=== PATIENT | female | born 1930 | race Caucasian/White ===

== ENCOUNTER 2017-12-01 12:03 | Inpatient (IN) ==
[2017-12-01 13:03] LABS: Basophils # 0.1 K/mcL (0.0-0.2); Basophils % 0.6 %; Eosinophils # 0.4 K/mcL (0.0-0.6); Eosinophils % 4.1 %; Hematocrit 36.6 % (35.3-44.9); Hemoglobin 11.7 g/dL (11.5-15.4); Immature Granulocytes % 0.4 % (0-4); Lymphocytes # 2.4 K/mcL (0.6-4.6); Lymphocytes % 27.6 %; Mean Corpuscular Hemoglobin 29.6 pg (28.0-33.3); Mean Corpuscular Volume 92.7 fL (83.0-100.0); Mean Platelet Volume 10.5 fL (9.4-12.4); Monocytes # 0.5 K/mcL (0.0-1.3); Neutrophils # 5.2 K/mcL (1.6-8.9); Platelet Count 225 K/mcL (140-400); Red Blood Count 3.95 M/mcL (3.82-4.97); Red Cell Distribution Width 13.8 % (11.5-14.5); Segmented Neutrophils % 61.3 %
--- NOTE | 2017-12-01 13:22 | Emergency Department Note ---
Disposition Clinical Impression: Shortness of breath, Second degree AV block, Mobitz type II Chest pain Qualifiers: Chest pain type: other chest pain Qualified Code(s): R07.89 - Other chest pain Disposition: Admitted As Inpatient Condition: Fair Time of Disposition: 15:36 General Adult HPI - General Chief complaint: ED Shortness of Breath/Dyspnea Stated complaint: sob Time Seen by Provider: 12/01/17 13:19 Source: patient Limitations: no limitations Nursing Notes Reviewed: Yes Vital Signs Reviewed: Yes - History of Present Illness HPI Narrative: Patient is a 87-year-old female that presents the emergency department with left -sided chest pain and exertional shortness of breath. She states that this is been ongoing for the past couple weeks. States that she went to see her primary care provider today who recommended that she come to the emergency department. Patient states that she had a stress test and nuclear echocardiogram approximately one month ago and states that everything was normal. Patient denies any previous history of cardiac arrhythmia. Patient states that her chest pain and shortness of breath becomes worse when she walks. States that she can only walk very short distance with a becoming significantly fatigued and short of breath. Pain Scale: 0 - Related Data Home Medications Medication Instructions Recorded Confirmed Aspirin [Lo-Dose Aspirin EC] 81 mg PO DAILY 12/01/17 12/01/17 Atorvastatin [Lipitor] 40 mg PO DAILY 12/01/17 12/01/17 Bumetanide [Bumex] 1 mg PO DAILY 12/01/17 12/01/17 Cyanocobalamin (Vitamin B-12) 1,000 mcg PO DAILY 12/01/17 12/01/17 [Vitamin B-12] Losartan Potassium [Cozaar] 100 mg PO DAILY 12/01/17 12/01/17 Metoprolol [Lopressor] 25 mg PO BID 12/01/17 12/01/17 Omeprazole [PriLOSEC] 40 mg PO DAILY 12/01/17 12/01/17 Potassium Chloride [Potassium 10 meq PO BID 12/01/17 12/01/17 Chloride] Vit A/Vit C/Vit E/Zinc/Copper 1 each PO DAILY 12/01/17 12/01/17 [Preservision Areds Tablet] Allergies Allergy/AdvReac Type Severity Reaction Status Date / Time No Known Allergies Allergy Verified 12/01/17 13:40 All systems ED: reviewed and negative except as stated. Cardiovascular: Reports: chest pain Respiratory: Reports: dyspnea Endocrine: Reports: fatigue Past Medical History - Past Medical History Medical history: Reports: hyperlipidemia, hypertension, renal disease Surgical history: Reports: hysterectomy Psychiatric history: Reports: no psych history - Social History Smoking Status: Never smoker Smokeless Tobacco Status: No Alcohol use: Reports: none Drug use: Reports: none Physical Exam - General Limitations: no limitations General appearance: alert, in no apparent distress - Head Head exam: atraumatic, normocephalic - Eye Eye exam: Present: normal appearance, EOMI - Neck Neck exam: Present: normal inspection, full ROM, trachea midline - Respiratory Respiratory exam: Present: normal lung sounds bilaterally. Absent: respiratory distress, wheezes - Cardiovascular Cardiovascular exam: Present: normal rhythm, bradycardia, normal heart sounds, + S1, +S2 - Abdominal Exam Abdominal exam: Present: soft, Non-Tender, normal bowel sounds - Neurological Exam Neurological exam: Present: alert, oriented X3 - Psychiatric Psychiatric exam: Present: normal affect, normal mood - Skin Skin exam: Present: warm, dry, intact Course Vital Signs Temperature 97.9 F 12/01/17 12:15 Pulse Rate 45 12/01/17 12:15 Respiratory Rate 18 12/01/17 12:15 Blood Pressure 143/71 12/01/17 12:15 O2 Sat by Pulse Oximetry 95 12/01/17 12:15 Temperature 97.9 F 12/01/17 12:15 Pulse Rate 45 12/01/17 12:15 Respiratory Rate 18 12/01/17 12:15 Blood Pressure 143/71 12/01/17 12:15 O2 Sat by Pulse Oximetry 95 12/01/17 12:15 Oxygen Delivery Oxygen Delivery Room Air Medical Decision Making - [facility] Narrative Medical decision making narrative: Due to the patient presenting with chest pain and shortness of breath we will obtain CBC, BMP, troponin, chest x-ray EKG, TSH and magnesium. The patient's EKG did show a second-degree type II heart block. We will also give the patient a dose of glucagon in case this is due to excessive beta johanna. We will also treat the patient prophylactically with Zofran. Patient's laboratory testing is unremarkable. I called and spoke with cardiology and they recommended the patient be admitted to the hospitalist service and they will consult on this patient. I called and spoke with the hospitalist and they accepted the patient to their service. The patient will be admitted to the hospital this time for further evaluation and management. - Medical Records Medical records reviewed: Yes I reviewed the patient's medical records. - Lab Data Lab results reviewed: Yes I reviewed the patient's lab results. Result diagrams: 12/01/17 12:47 12/01/17 12:23 Lab Results 12/01/17 12/01/17 12/01/17 Range/Units 12:23 12:47 12:47 WBC 8.5 (4.3-11.1) K/mcL RBC 3.95 (3.82-4.97) M/mcL Hgb 11.7 (11.5-15.4) g/dL Hct 36.6 (35.3-44.9) % MCV 92.7 (83.0-100.0) fL MCH 29.6 (28.0-33.3) pg MCHC 32.0 (31.6-35.5) g/dL RDW 13.8 (11.5-14.5) % Plt Count 225 (140-400) K/mcL MPV 10.5 (9.4-12.4) fL Immature Gran % 0.4 (0-4) % Seg Neutrophils % 61.3 % Lymphocytes % 27.6 % Monocytes % 6.0 % Eosinophils % 4.1 % Basophils % 0.6 % Neutrophils # 5.2 (1.6-8.9) K/mcL Lymphocytes # 2.4 (0.6-4.6) K/mcL Monocytes # 0.5 (0.0-1.3) K/mcL Eosinophils # 0.4 (0.0-0.6) K/mcL Basophils # 0.1 (0.0-0.2) K/mcL Sodium 137 (136-145) mEq/L Potassium 4.3 (3.5-5.1) mEq/L Chloride 108 H (98-107) mEq/L Carbon Dioxide 23 (23-29) mEq/L BUN 30 H (8-23) mg/dL Creatinine 1.23 H (0.60-1.20) mg/dL Est GFR ( Amer) 50 L (> 60) Est GFR (Non-Af Amer) 41 L (> 60) BUN/Creatinine Ratio 24 (6-26) Glucose 148 H (70-105) mg/dL Calculated Osmolality 293 (280-300) Lactic Acid 1.5 (0.5-2.2) mmol/L Calcium 9.3 (8.6-10.3) mg/dL Magnesium 1.8 (1.6-2.6) mg/dL Troponin I 0.03 (< 0.04) ng/mL B-Natriuretic Peptide (Less than 100) pg/mL TSH 3.233 (0.340-5.600) mcIU/mL 12/01/17 Range/Units 12:47 WBC (4.3-11.1) K/mcL RBC (3.82-4.97) M/mcL Hgb (11.5-15.4) g/dL Hct (35.3-44.9) % MCV (83.0-100.0) fL MCH (28.0-33.3) pg MCHC (31.6-35.5) g/dL RDW (11.5-14.5) % Plt Count (140-400) K/mcL MPV (9.4-12.4) fL Immature Gran % (0-4) % Seg Neutrophils % % Lymphocytes % % Monocytes % % Eosinophils % % Basophils % % Neutrophils # (1.6-8.9) K/mcL Lymphocytes # (0.6-4.6) K/mcL Monocytes # (0.0-1.3) K/mcL Eosinophils # (0.0-0.6) K/mcL Basophils # (0.0-0.2) K/mcL Sodium (136-145) mEq/L Potassium (3.5-5.1) mEq/L Chloride (98-107) mEq/L Carbon Dioxide (23-29) mEq/L BUN (8-23) mg/dL Creatinine (0.60-1.20) mg/dL Est GFR ( Amer) (> 60) Est GFR (Non-Af Amer) (> 60) BUN/Creatinine Ratio (6-26) Glucose (70-105) mg/dL Calculated Osmolality (280-300) Lactic Acid (0.5-2.2) mmol/L Calcium (8.6-10.3) mg/dL Magnesium (1.6-2.6) mg/dL Troponin I (< 0.04) ng/mL B-Natriuretic Peptide 1174 H (Less than 100) pg/mL TSH (0.340-5.600) mcIU/mL - Radiology Data Radiology results reviewed: Yes I reviewed the patient's radiology results. Chest X-Ray 12/01/17 12:23 IMPRESSION: 1. Minimal central congestion. No evidence of pulmonary edema. No finding to account for patient's shortness of breath. D/ / Neil Ramires MD / Neil Ramires MD Interpreting Provider: Neil Ramires MD - EKG Data EKG #1 EKG attestation: Yes I reviewed and interpreted this EKG. EKG results narrative: Patient's EKG shows a sinus bradycardia with a second-degree type II AV block. At a rate of 38 bpm, QRS duration of 126, QTc of 396 with a normal axis. This was compared to previous EKG on 03/14/2007. Showed a sinus rhythm at a rate of 85 bpm.
[2017-12-01] MEDS ORDERED: Ondansetron 4 MG/2 ML VIAL IVP ONE ×2 (13:28→15:35)
[2017-12-01 13:34] LABS: Calcium 9.3 mg/dL (8.6-10.3); Potassium 4.3 mEq/L (3.5-5.1)
[2017-12-01 13:36] LABS: Troponin I 0.03 ng/mL (< 0.04)
[2017-12-01 13:59] LABS: Thyroid Stimulating Hormone 3.233 mcIU/mL (0.340-5.600)
--- NOTE | 2017-12-01 14:23 | Cardiology Consult Note ---
<Hussain Giordano - Last Filed: 12/01/17 15:24> Date of Encounter: 12/01/17 Time of Encounter: 14:21 Assessment and Plan (1) Second degree AV block, Mobitz type II Current Visit: Yes Status: Acute Nuclear Stress Test: 10/13/17 Pharmacologic stress ECG is non diagnostic for ischemia due to baseline non-specific ST and T changes. Gated EF > 70%. Small sized, mild intensity, primarily fixed anterior defect. Wall motion is normal. These findings are suggestive of artifact. Perfusion imaging was negative for ischemia or infarct. Myocardial Perfusion Scan Nuc Med: Pharmacologic stress ECG is non diagnostic for ischemia due to baseline 10/13/[address] non-[address] and T changes. Gated EF > 70%. Small sized, mild intensity, primarily fixed anterior defect. Wall motion is normal. These findings are suggestive of artifact. Perfusion imaging was negative for ischemia or infarct. Echocardiogram: 10/13/17 Impressions: LVEF 60-65%. Normal LV chamber size and function. Asymmetric hypertrophy of the basal septum. No LVOT obstruction. Mild left ventricular diastolic dysfunction. Normal right ventricular structure and function. Evidence of a PFO with right to left shunt with agitated saline. Mild aortic stenosis. Mean gradient 12 mmHg. Mild mitral regurgitation. No evidence of pulmonary hypertension. EKG shows Mobitz Type II at rate of 38 bpm, new when compared to old EKG. Troponin negative. BNP 1200's. CXR mild central vascular congestion. Creatinine elevated at 1.23. Patient given total of 4mg of glucagon for reversal of BB with no response. Patient current rythm may be related to her BB medication. Plan: Stop Lopressor 25mg BID Continue to monitor on telemetry If Mobitz II does not resolve, may consider permanent pacemaker Will reevaluate tomorrow (2) Shortness of breath Current Visit: Yes Status: Acute May be due to patient bradycardia from heart block at this time (3) Chest pain Current Visit: Yes Status: Acute See notes above Qualifiers: Chest pain type: other chest pain Qualified Code(s): R07.89 - Other chest pain; R07.8 - Other chest pain Discussion w patient/family: The assessment and plan as outlined above was discussed with the patient and/or family members who expressed understanding and agreement. All questions were answered. Thank you for involving us in the care of your patient. Please call with any questions. History of Present Illness Consult date: 12/01/17 Requesting physician: Guillermo Lechuga Consult reason: Mobitz Type II Chief complaint: CHRISTOPHER History of present illness: Ms. Robles is a 87 year old female with a past medical history of hyperlipidemia , hypertension, CK D stage III, and hysterectomy presenting to the emergency department for complaint of shortness of breath and chest pain that has been going on for 2 months. The patient states that over the past week her shortness of breath has worsened rapidly. Patient states that she has difficulty with walking from the couch to the bathroom or doing any sort of activity and sometimes with conversating. The patient was initially being seen by her primary care provider, Dr. Cuadra, and she is being evaluated for her shortness of breath which she underwent a nuclear stress test as well as an echocardiogram which she was told was normal. At this time the patient states that she does have chest pain and it is described as left-sided with radiation to the back. The chest pain is pressure-like and a 3/10 on pain scale and at times associated with diaphoresis. She states that the chest pain is intermittent and sometimes it comes on when she was sitting down does not notice a pattern with exertion. Patient states she has had a heart catheterization done over 10 years ago in which they stated she had minimal blockages and no stents or balloons were placed at that time. Today while in the emergency department she has an elevated BNP at 1174, elevated creatinine 1.23. She does take a beta johanna, Lopressor 25 mg twice a day, she states has not been any changes in her medications over the past few years. She was given glucagon. Her EKG shows a type II Mobitz block at a rate of 38 bpm. Her blood pressure is elevated at 180/60. Past Med Surg Social Fam HX - Past Medical History Medical history: hyperlipidemia, hypertension, renal disease Psychiatric history: no psych history - Past Surgical History Surgical History: hysterectomy - Social History Smoking Status: Never smoker Smokeless Tobacco Status: No Alcohol use: none Drug use: none Medications and Allergies Aspirin [Lo-Dose Aspirin EC] 81 mg PO DAILY 12/01/17 [History] Atorvastatin [Lipitor] 40 mg PO DAILY 12/01/17 [History] Bumetanide [Bumex] 1 mg PO DAILY 12/01/17 [History] Cyanocobalamin (Vitamin B-12) [Vitamin B-12] 1,000 mcg PO DAILY 12/01/17 [ History] Losartan Potassium [Cozaar] 100 mg PO DAILY 12/01/17 [History] Metoprolol [Lopressor] 25 mg PO BID 12/01/17 [History] Omeprazole [PriLOSEC] 40 mg PO DAILY 12/01/17 [History] Potassium Chloride [Potassium Chloride] 10 meq PO BID 12/01/17 [History] Vit A/Vit C/Vit E/Zinc/Copper [Preservision Areds Tablet] 1 each PO DAILY [History] 3 Allergy/AdvReac Type Severity Reaction Status Date / Time No Known Allergies Allergy Verified 12/01/17 13:40 All Systems Review: The remainder of the systems were reviewed and are negative - Constitutional Constitutional: weakness - Cardiovascular Cardiovascular: chest pain at rest, diaphoresis, dyspnea at rest, dyspnea on exertion, leg edema, no palpitations - Respiratory Respiratory: dyspnea - Gastrointestinal Gastrointestinal: no nausea Physical Examination Vital Signs, Last 4 Hours Temp Pulse Resp BP Pulse Ox 12/01/17 12:15 97.9 F 45 18 143/71 95 General: Conversant, No Apparent Distress HEENT: Atraumatic, Normocephaly, Mucus Membranes Moist Neck: No JVD, Normal carotid pulses Cardiac: Normal S1 and S2, No Murmur, Other (bradycardia) Lungs: Other (mild expiratory wheeze) Neuro: Alert and responsive, No focal deficits noted Abdomen: Soft, Non-Tender Skin: No rashes noted on visualized skin Musculoskeletal: No Chest Wall Tenderness Extremities: No Clubbing, No Cyanosis, Normal Pulses, Other (1+ pitting edema bilaterally) Results 12/01/17 12:47 12/01/17 12:23 Lab Results 12/01/17 12/01/17 12/01/17 12:23 12:47 12:47 WBC 8.5 Hgb 11.7 Hct 36.6 Plt Count 225 Sodium 137 Potassium 4.3 Chloride 108 H Carbon Dioxide 23 BUN 30 H Creatinine 1.23 H Glucose 148 H Calcium 9.3 Troponin I 0.03 B-Natriuretic Peptide 1174 H TSH 3.233 Consult Discharge Plan - Plan Referrals: Lee Cuadra MD [Primary Care Provider] - <Marck Sauceda - Last Filed: 12/03/17 22:36> Date of Encounter: 12/01/17 - Attending Attestation I examined this patient and my medical decision-making was reviewed with the Resident Physician. I agree with the documented findings, disposition and treatment plan as described except to the extent set forth below. CC: fatigue, shortness of breath Pt reports two month history of increasing fatigue, worse with activity, having increased difficulty with self care and housework because she feels too tired. She is unable to perform usual acitivity without having to sit down and rest much more frequently. She also reports episodic shortness of breath, not present all the time, but occurs four to five times a day where she feels air hunger, as if she cannot take a full breath, which lasts seconds to minutes. These events usually occur with activity, resolve with rest. She has undergone outpatient evaluation with stress imaging, reportedly no inducible ischemia, and echocardiogram which was significant for small PFO with small right to left shunt, normal LV systolic function and mild MR. She reports she feels tired and sleepy at rest at time of evaluation. PMHx: reviewed PE: pt seen and examined, agree with findings as documented IMP:PLAN 1. Bradycardia: Ekg demonstrates Mobitz II 2:1 AV block with ventricular heart rate of 38 - 42, with preserved bp 145/72. Suspect her "episodes" may be due to bradycardia, at this time Does not need temporary pacer, hold beta blockade, check TSH, continue to monitor, will follow with you off metoprolol, suspect will recover from block, may still need permenent pacemaker. 2. Hypertension: not well controlled, will monitor off beta blockade 3. PFO - small, not clearly symptomatic, continue to monitor Assessment and Plan Discussion w patient/family: The assessment and plan as outlined above was discussed with the patient and/or family members who expressed understanding and agreement. All questions were answered. Thank you for involving us in the care of your patient. Please call with any questions. History of Present Illness History of present illness: Ms. Robles is a 87 year old female Past Med Surg Social Fam HX - Family History Mother Living Status: Hx Family Cardiac Disorders: Yes Father Living Status: Hx Family Cardiac Disorders: Yes Brother Hx Family Cardiac Disorders: Yes All Systems Review: The remainder of the systems were reviewed and are negative Physical Examination Vital Signs, Last 4 Hours Temp Pulse Resp BP Pulse Ox 12/03/17 19:21 98.2 F 81 18 190/84 94 Results 12/03/17 08:40 12/03/17 08:40 Lab Results 12/03/17 12/03/17 08:40 08:40 WBC 6.1 Hgb 10.9 L Hct 32.9 L Plt Count 188 Sodium 140 Potassium 4.2 Chloride 107 Carbon Dioxide 26 BUN 31 H Creatinine 1.30 H Glucose 137 H Calcium 9.0
[2017-12-01 14:42] LABS: Magnesium 1.8 mg/dL (1.6-2.6)
[2017-12-01] MEDS ORDERED: Naloxone 0.4 MG/ML INJ IVP PRN (16:32)
[2017-12-01] MEDS ORDERED: 0.9 % Sodium Chloride 1,000 ML IVC SCH (16:45)
--- NOTE | 2017-12-01 16:59 | Internal Med History&Physical ---
Date of Encounter: 12/01/17 Time of Encounter: 16:40 Internal Medicine - H&P: HPI Chief complaint: Chest pain and Dizziness. Admitted From: Emergency Dept Plans for Post Hospital Care: Home History of present illness: Ms. Robles is a 87 year old female has a background history of hypertension and hyperlipidemia along with chronic kidney disease stage III. Patient was evaluated by her primary care and recommended to go to emergency department because patient has a chest pain/shortness of breath along with a left-sided weakness. It was told by primary care provider to patient that she might need a CT scan of the brain. Patient denies abdominal pain, nausea, vomiting, diarrhea. Workup in the emergency department: Patient was evaluated in the emergency department. Basic labs were drawn. EKG shows type II Mobitz block. Noted that cardiology was consulted. Reason for admission: Chest pain likely secondary to rhythm abnormality, possibility of a TIA to rule out CVA Past Med Surg Social Fam HX - Past Medical History Medical history: hyperlipidemia, hypertension, renal disease Psychiatric history: no psych history - Past Surgical History Surgical History: hysterectomy - Social History Smoking Status: Never smoker Smokeless Tobacco Status: No Alcohol use: none Drug use: none - Family History Mother Living Status: Hx Family Cardiac Disorders: Yes Father Living Status: Hx Family Cardiac Disorders: Yes Brother Hx Family Cardiac Disorders: Yes Internal Medicine - H&P: Meds Aspirin [Lo-Dose Aspirin EC] 81 mg PO DAILY 12/01/17 [History] Atorvastatin [Lipitor] 40 mg PO DAILY 12/01/17 [History] Bumetanide [Bumex] 1 mg PO DAILY 12/01/17 [History] Cyanocobalamin (Vitamin B-12) [Vitamin B-12] 1,000 mcg PO DAILY 12/01/17 [ History] Losartan Potassium [Cozaar] 100 mg PO DAILY 12/01/17 [History] Metoprolol [Lopressor] 25 mg PO BID 12/01/17 [History] Omeprazole [PriLOSEC] 40 mg PO DAILY 12/01/17 [History] Potassium Chloride [Potassium Chloride] 10 meq PO BID 12/01/17 [History] Vit A/Vit C/Vit E/Zinc/Copper [Preservision Areds Tablet] 1 each PO DAILY [History] 3 Allergy/AdvReac Type Severity Reaction Status Date / Time No Known Allergies Allergy Verified 12/01/17 13:40 All Systems PM: A 10-system review of systems was performed and is negative for pertinent findings except as documented above in the HPI. - Constitutional Constitutional: no chills, no fever(s), no night sweats - EENT Eyes: no change in vision, no discharge, no pain, no photophobia Ears: no ear discharge, no ear pain, no tinnitus Nose, mouth and throat: no dysphagia, no nasal discharge, no neck pain, no sore throat - Cardiovascular Cardiovascular ROS IM: chest pain, dyspnea, lightheadedness, no diaphoresis, no palpitations, no syncope - Respiratory Respiratory: no cough, no dyspnea, no wheezing, no excessive phlegm production - Gastrointestinal Gastrointestinal: no abdominal pain, no diarrhea, no hematemesis, no hematochezia, no melena, no nausea, no vomiting - Genitourinary Genitourinary: no change in urinary stream, no dysuria, no flank pain, no hematuria - Musculoskeletal Musculoskeletal ROS IM: no numbness, no tingling - Integumentary Integumentary IM: no rash, no unusual bruising - Neurological Neurological ROS: no confusion, no convulsions, no focal weakness, no numbness, no tingling, no tremor(s) - Hematologic/Lymphatic Hematologic/Lymphatic: no easy bruising - Constitutional Vitals: Temp Pulse Resp BP Pulse Ox 97.9 F 45 18 143/71 95 12/01/17 12:15 12/01/17 12:15 12/01/17 12:15 12/01/17 12:15 12/01/17 12:15 General appearance: Present: A&O X 3, pleasant, no acute distress, answers questions appropriately - Head Head exam: Present: atraumatic, normocephalic - Eye Eye exam: Present: PERRL, conjuntiva pink, sclera anicteric Pupils: Present: PERRL - Neck Neck exam general surgery: Present: supple, trachea midline. Absent: lymphadenopathy - Respiratory Respiratory exam: Present: CTAB. Absent: accessory muscle use, rales, rhonchi, wheezes - Cardiovascular Cardiovascular exam: Present: RRR, +S1, +S2. Absent: diastolic murmur, gallop, rubs, systolic murmur - GI/Abdominal GI/Abdominal exam: Present: normal bowel sounds, soft, no peritoneal signs. Absent: distended, tenderness - Extremities Exam Extremities exam: Present: warm, radial pulses palpable and symmetrical. Absent : calf tenderness, cyanotic, pedal edema - Neurological Exam Neurological exam: Present: CN II-XII intact, oriented X3, no focal deficits. Absent: pronater drift, facial droop, speech deficit - Skin Skin exam: Present: dry, intact Internal Med - H&P Results - Labs CBC & Chem 7: 12/01/17 12:47 12/01/17 12:23 - Assessment and plan (1) Chest pain Current Visit: Yes Status: Acute Assessment and plan: 87/female Admitted with chest pain. We will get 3 troponin. echocardiogram. Patient 3 troponin normal and echocardiogram is within normal limit then please consider stress test. Qualifiers: Chest pain type: other chest pain Qualified Code(s): R07.89 - Other chest pain; R07.8 - Other chest pain (2) Second degree AV block, Mobitz type II Current Visit: Yes Status: Acute Assessment and plan: Cardiology on the board and we will follow recommendations (3) Shortness of breath Current Visit: Yes Status: Acute Assessment and plan: Much improved (4) DVT prophylaxis Current Visit: Yes Status: Acute - Time Spent With Patient Total time spent is greater than 50% in coordination of care (as documented) at patient's floor/unit and/or counseling patient:
--- NOTE | 2017-12-01 22:46 | Emergency Department Note ---
Disposition Clinical Impression: Shortness of breath, Second degree AV block, Mobitz type II Chest pain Qualifiers: Chest pain type: other chest pain Qualified Code(s): R07.89 - Other chest pain Disposition: Admitted As Inpatient Condition: Fair General Adult HPI - General Chief complaint: ED Shortness of Breath/Dyspnea Stated complaint: sob Time Seen by Provider: 12/01/17 13:19 Source: patient Limitations: no limitations - History of Present Illness Pain Scale: 0 - Related Data Home Medications Medication Instructions Recorded Confirmed Aspirin [Lo-Dose Aspirin EC] 81 mg PO DAILY 12/01/17 12/01/17 Atorvastatin [Lipitor] 40 mg PO DAILY 12/01/17 12/01/17 Bumetanide [Bumex] 1 mg PO DAILY 12/01/17 12/01/17 Cyanocobalamin (Vitamin B-12) 1,000 mcg PO DAILY 12/01/17 12/01/17 [Vitamin B-12] Losartan Potassium [Cozaar] 100 mg PO DAILY 12/01/17 12/01/17 Metoprolol [Lopressor] 25 mg PO BID 12/01/17 12/01/17 Omeprazole [PriLOSEC] 40 mg PO DAILY 12/01/17 12/01/17 Potassium Chloride [Potassium 10 meq PO BID 12/01/17 12/01/17 Chloride] Vit A/Vit C/Vit E/Zinc/Copper 1 each PO DAILY 12/01/17 12/01/17 [Preservision Areds Tablet] Allergies Allergy/AdvReac Type Severity Reaction Status Date / Time No Known Allergies Allergy Verified 12/01/17 13:40 Cardiovascular: Reports: chest pain Respiratory: Reports: dyspnea Endocrine: Reports: fatigue Past Medical History - Past Medical History Medical history: Reports: hyperlipidemia, hypertension, renal disease Surgical history: Reports: hysterectomy Psychiatric history: Reports: no psych history - Social History Smoking Status: Never smoker Smokeless Tobacco Status: No Alcohol use: Reports: none Drug use: Reports: none Physical Exam - General Limitations: no limitations General appearance: alert, in no apparent distress Course Vital Signs Temperature 97.9 F 12/01/17 12:15 Pulse Rate 45 12/01/17 12:15 Respiratory Rate 18 12/01/17 12:15 Blood Pressure 143/71 12/01/17 12:15 O2 Sat by Pulse Oximetry 95 12/01/17 12:15 Temperature 97.9 F 12/01/17 19:08 Pulse Rate 44 12/01/17 17:25 Respiratory Rate 16 12/01/17 19:08 Blood Pressure 142/61 12/01/17 19:08 O2 Sat by Pulse Oximetry 96 12/01/17 21:02 Oxygen Delivery Oxygen Delivery Room Air Medical Decision Making - Lab Data Result diagrams: 12/01/17 12:47 12/01/17 12:23 Lab Results 12/01/17 12/01/17 12/01/17 Range/Units 12:23 12:47 12:47 WBC 8.5 (4.3-11.1) K/mcL RBC 3.95 (3.82-4.97) M/mcL Hgb 11.7 (11.5-15.4) g/dL Hct 36.6 (35.3-44.9) % MCV 92.7 (83.0-100.0) fL MCH 29.6 (28.0-33.3) pg MCHC 32.0 (31.6-35.5) g/dL RDW 13.8 (11.5-14.5) % Plt Count 225 (140-400) K/mcL MPV 10.5 (9.4-12.4) fL Immature Gran % 0.4 (0-4) % Seg Neutrophils % 61.3 % Lymphocytes % 27.6 % Monocytes % 6.0 % Eosinophils % 4.1 % Basophils % 0.6 % Neutrophils # 5.2 (1.6-8.9) K/mcL Lymphocytes # 2.4 (0.6-4.6) K/mcL Monocytes # 0.5 (0.0-1.3) K/mcL Eosinophils # 0.4 (0.0-0.6) K/mcL Basophils # 0.1 (0.0-0.2) K/mcL Sodium 137 (136-145) mEq/L Potassium 4.3 (3.5-5.1) mEq/L Chloride 108 H (98-107) mEq/L Carbon Dioxide 23 (23-29) mEq/L BUN 30 H (8-23) mg/dL Creatinine 1.23 H (0.60-1.20) mg/dL Est GFR ( Amer) 50 L (> 60) Est GFR (Non-Af Amer) 41 L (> 60) BUN/Creatinine Ratio 24 (6-26) Glucose 148 H (70-105) mg/dL Calculated Osmolality 293 (280-300) Lactic Acid 1.5 (0.5-2.2) mmol/L Calcium 9.3 (8.6-10.3) mg/dL Magnesium 1.8 (1.6-2.6) mg/dL Troponin I 0.03 (< 0.04) ng/mL B-Natriuretic Peptide (Less than 100) pg/mL TSH 3.233 (0.340-5.600) mcIU/mL 12/01/17 12/01/17 Range/Units 12:47 16:55 WBC (4.3-11.1) K/mcL RBC (3.82-4.97) M/mcL Hgb (11.5-15.4) g/dL Hct (35.3-44.9) % MCV (83.0-100.0) fL MCH (28.0-33.3) pg MCHC (31.6-35.5) g/dL RDW (11.5-14.5) % Plt Count (140-400) K/mcL MPV (9.4-12.4) fL Immature Gran % (0-4) % Seg Neutrophils % % Lymphocytes % % Monocytes % % Eosinophils % % Basophils % % Neutrophils # (1.6-8.9) K/mcL Lymphocytes # (0.6-4.6) K/mcL Monocytes # (0.0-1.3) K/mcL Eosinophils # (0.0-0.6) K/mcL Basophils # (0.0-0.2) K/mcL Sodium (136-145) mEq/L Potassium (3.5-5.1) mEq/L Chloride (98-107) mEq/L Carbon Dioxide (23-29) mEq/L BUN (8-23) mg/dL Creatinine (0.60-1.20) mg/dL Est GFR ( Amer) (> 60) Est GFR (Non-Af Amer) (> 60) BUN/Creatinine Ratio (6-26) Glucose (70-105) mg/dL Calculated Osmolality (280-300) Lactic Acid (0.5-2.2) mmol/L Calcium (8.6-10.3) mg/dL Magnesium (1.6-2.6) mg/dL Troponin I 0.05 H* (< 0.04) ng/mL B-Natriuretic Peptide 1174 H (Less than 100) pg/mL TSH (0.340-5.600) mcIU/mL Attestation Statement - Attestation Attestation: I examined this patient and my medical decision-making was reviewed with the Resident Physician. I agree with the documented findings, disposition and treatment plan as described except to the extent set forth below. Moments type II second-degree AV block with heart rate of 38-41. Spoke with cardiology, who requested admission to medicine. Blood pressure is normal. Alleged lites normal. No response to glucagon. Admitted to medicine with consult to cardiology, blood pressure remained normal while in the emergency department.
[2017-12-01] MEDS ORDERED: Furosemide 20 MG/2 ML VIAL IVP ONE (23:37)
[2017-12-02] MEDS: *HR* Heparin 5,000 UNIT/ML VIAL SQ SCH ×3 (00:14→17:00)
[2017-12-02] MEDS: Acetaminophen 325 MG TABLET PO PRN (04:38)
[2017-12-02 05:00] LABS: Basophils % 0.5 %; Eosinophils # 0.3 K/mcL (0.0-0.6); Eosinophils % 3.9 %; Hematocrit 32.5 % (35.3-44.9); Hemoglobin 10.4 g/dL (11.5-15.4); Immature Granulocytes % 0.4 % (0-4); Lymphocytes # 2.2 K/mcL (0.6-4.6); Lymphocytes % 29.5 %; Mean Corpuscular Hemoglobin 29.7 pg (28.0-33.3); Mean Corpuscular Volume 92.9 fL (83.0-100.0); Mean Platelet Volume 10.8 fL (9.4-12.4); Monocytes # 0.6 K/mcL (0.0-1.3); Monocytes % 7.6 %; Neutrophils # 4.3 K/mcL (1.6-8.9); Platelet Count 194 K/mcL (140-400); Red Cell Distribution Width 14.2 % (11.5-14.5); Segmented Neutrophils % 58.1 %
[2017-12-02 05:07] LABS: Prothrombin Time 11.2 Seconds (9.4-12.1)
[2017-12-02 05:10] LABS: Activated Partial Thrombo Time 30.2 Seconds (26.0-36.0)
[2017-12-02 05:20] LABS: Albumin 3.4 g/dL (3.5-5.7); Albumin/Globulin Ratio 1.4 (1.1-2.2); Bilirubin,Total 0.7 mg/dL (0.3-1.0); Calcium 8.9 mg/dL (8.6-10.3); Chol/HDL Ratio 3.8 (0-4.9); Globulin 2.5 g/dL (2.4-3.5); Magnesium 1.7 mg/dL (1.6-2.6); Phosphorous 4.4 mg/dL (2.7-4.5); Potassium 4.5 mEq/L (3.5-5.1); Total Protein 5.9 g/dL (6.4-8.9)
--- NOTE | 2017-12-02 07:17 | Electrocardiograph Report ---
[place] [facility] Test Date: 2017-12-01 Pat Name: Rosalba Robles Department: [id number] Room: 2N06 Gender: F Transportation Attendant: : [id number] Requested By: Hiro Slaughter Order Number: [id number] Reading MD: Rose Mary Anthony Measurements Intervals [place] Rate: 38 P: RI: 0 QRS: 27 QRSD: 126 T: 16 QT: 473 QTc: 396 Interpretive Statements SINUS BRADYCARDIA WITH 2ND DEGREE AV BLOCK, MOBITZ TYPE II RIGHT BUNDLE BRANCH BLOCK Electronically Signed On 12-02-2017 7:16:07 EDT by Rose Mary Anthony
[2017-12-02] MEDS: Bumetanide 1 MG TABLET PO SCH (09:02)
[2017-12-02] MEDS: Multivit/Ca/Min/Fe/FA 1 TAB TABLET PO SCH (09:02)
[2017-12-02] MEDS: Aspirin Enteric Coated 81 MG Tablet PO SCH (09:02)
--- NOTE | 2017-12-02 19:21 | Internal Med Progress Note ---
Date of Encounter: 12/02/17 Time of Encounter: 11:00 - Assessment and plan (1) Second degree AV block, Mobitz type II Current Visit: Yes Status: Acute Assessment and plan: Patient with symptomatic bradycardia with heart rate in the 40s since admission Cardiology following and appreciate recommendations (2) HTN (hypertension) Current Visit: Yes Status: Acute Assessment and plan: Controlled; continue Cozaar Qualifiers: Hypertension type: essential hypertension Qualified Code(s): I10 - Essential (primary) hypertension (3) HLD (hyperlipidemia) Current Visit: Yes Status: Acute Assessment and plan: Continue statin Qualifiers: Hyperlipidemia type: unspecified Qualified Code(s): E78.5 - Hyperlipidemia , unspecified (4) DVT prophylaxis Current Visit: Yes Status: Acute Assessment and plan: Continue subcutaneous heparin - Time Spent With Patient Total time spent is greater than 50% in coordination of care (as documented) at patient's floor/unit and/or counseling patient: - Subjective Interval history: Patient has had symptomatic bradycardia since admission with heart rate in the 40s - Constitutional Vitals: Temp Pulse Resp BP Pulse Ox 97.8 F 45 18 153/59 99 12/02/17 16:44 12/02/17 16:44 12/02/17 16:44 12/02/17 16:44 12/02/17 16:44 General appearance: Present: A&O X 3, pleasant, no acute distress, answers questions appropriately - Respiratory Respiratory exam: Present: CTAB. Absent: accessory muscle use, rales, rhonchi, wheezes - Cardiovascular Cardiovascular exam: Present: RRR, +S1, +S2. Absent: diastolic murmur, gallop, rubs, systolic murmur Internal Medicine: Result - Labs CBC & Chem 7: 12/02/17 04:47 12/02/17 04:47 Labs: Short CBC 12/02/17 Range/Units 04:47 WBC 7.4 (4.3-11.1) K/mcL Hgb 10.4 L (11.5-15.4) g/dL Hct 32.5 L (35.3-44.9) % Plt Count 194 (140-400) K/mcL Neutrophils # 4.3 (1.6-8.9) K/mcL BMP 12/02/17 04:47 Sodium 142 Potassium 4.5 Chloride 111 H Carbon Dioxide 24 BUN 31 H Creatinine 1.36 H Glucose 141 H Calcium 8.9 Cardiac Enzymes 12/01/17 12/02/17 12/02/17 Range/Units 22:21 04:47 11:43 Troponin I 0.04 H* 0.06 H* 0.05 H* (< 0.04) ng/mL Liver Function 12/02/17 Range/Units 04:47 Total Bilirubin 0.7 (0.3-1.0) mg/dL AST 18 (13-39) Units/L ALT 23 (7-52) Units/L Alkaline Phosphatase 65 (34-104) Units/L Albumin 3.4 L (3.5-5.7) g/dL - ABG Interpretation ABG results: PT/INR, D-dimer PT 11.2 Seconds (9.4-12.1) 12/02/17 04:47 Consult Discharge Plan - Plan Referrals: Lee Cuadra MD [Primary Care Provider] -
[2017-12-03] MEDS: *HR* Heparin 5,000 UNIT/ML VIAL SQ SCH ×4 (01:00→22:50)
[2017-12-03] MEDS: Bumetanide 1 MG TABLET PO SCH (07:52)
[2017-12-03] MEDS: Multivit/Ca/Min/Fe/FA 1 TAB TABLET PO SCH (07:52)
[2017-12-03] MEDS: Aspirin Enteric Coated 81 MG Tablet PO SCH (07:52)
[2017-12-03 08:50] LABS: Basophils % 0.7 %; Eosinophils # 0.3 K/mcL (0.0-0.6); Eosinophils % 4.3 %; Hematocrit 32.9 % (35.3-44.9); Hemoglobin 10.9 g/dL (11.5-15.4); Immature Granulocytes % 0.3 % (0-4); Lymphocytes # 1.9 K/mcL (0.6-4.6); Lymphocytes % 30.3 %; Mean Corpuscular HGB Conc 33.1 g/dL (31.6-35.5); Mean Corpuscular Hemoglobin 30.8 pg (28.0-33.3); Mean Corpuscular Volume 92.9 fL (83.0-100.0); Mean Platelet Volume 10.9 fL (9.4-12.4); Monocytes # 0.4 K/mcL (0.0-1.3); Monocytes % 6.9 %; Neutrophils # 3.5 K/mcL (1.6-8.9); Platelet Count 188 K/mcL (140-400); Red Blood Count 3.54 M/mcL (3.82-4.97); Red Cell Distribution Width 13.7 % (11.5-14.5); Segmented Neutrophils % 57.5 %
[2017-12-03 09:09] LABS: Potassium 4.2 mEq/L (3.5-5.1)
--- NOTE | 2017-12-03 18:24 | Internal Med Progress Note ---
Date of Encounter: 12/03/17 Time of Encounter: 11:00 - Assessment and plan (1) Second degree AV block, Mobitz type II Current Visit: Yes Status: Acute Assessment and plan: Patient with symptomatic bradycardia with heart rate in the 40s since admission but heart rate has been within normal range today Cardiology following with considerations for permanent pacemaker and appreciate recommendations; patient's beta johanna has been held (2) HTN (hypertension) Current Visit: Yes Status: Acute Assessment and plan: Controlled; continue Cozaar as beta johanna has been held Qualifiers: Hypertension type: essential hypertension Qualified Code(s): I10 - Essential (primary) hypertension (3) HLD (hyperlipidemia) Current Visit: Yes Status: Acute Qualifiers: Hyperlipidemia type: unspecified Qualified Code(s): E78.5 - Hyperlipidemia , unspecified (4) DVT prophylaxis Current Visit: Yes Status: Acute Assessment and plan: Continue subcutaneous heparin - Time Spent With Patient Total time spent is greater than 50% in coordination of care (as documented) at patient's floor/unit and/or counseling patient: - Subjective Interval history: Patient has had symptomatic bradycardia since admission with heart rate in the 40s but heart rate today has been within normal range - Constitutional Vitals: Temp Pulse Resp BP Pulse Ox 98.5 F 85 18 157/61 94 12/03/17 15:06 12/03/17 15:57 12/03/17 15:57 12/03/17 15:06 12/03/17 15:57 General appearance: Present: A&O X 3, pleasant, no acute distress, answers questions appropriately - Respiratory Respiratory exam: Present: CTAB. Absent: accessory muscle use, rales, rhonchi, wheezes - Cardiovascular Cardiovascular exam: Present: RRR, +S1, +S2. Absent: diastolic murmur, gallop, rubs, systolic murmur Internal Medicine: Result - Labs CBC & Chem 7: 12/03/17 08:40 12/03/17 08:40 Labs: Short CBC 12/03/17 Range/Units 08:40 WBC 6.1 (4.3-11.1) K/mcL Hgb 10.9 L (11.5-15.4) g/dL Hct 32.9 L (35.3-44.9) % Plt Count 188 (140-400) K/mcL Neutrophils # 3.5 (1.6-8.9) K/mcL BMP 12/03/17 08:40 Sodium 140 Potassium 4.2 Chloride 107 Carbon Dioxide 26 BUN 31 H Creatinine 1.30 H Glucose 137 H Calcium 9.0 - ABG Interpretation ABG results: PT/INR, D-dimer PT 11.2 Seconds (9.4-12.1) 12/02/17 04:47 Consult Discharge Plan - Plan Referrals: Lee Cuadra MD [Primary Care Provider] -
--- NOTE | 2017-12-03 22:40 | Cardiology Progress Note ---
Date of Encounter: 12/03/17 Time of Encounter: 20:00 Assessment and Plan (1) Shortness of breath Current Visit: Yes Status: Acute Has resolved with recovery of heart rate, now with excellent exercise tolerence. (2) Second degree AV block, Mobitz type II Current Visit: Yes Status: Acute Has resolved, with resolution of symptoms of shortness of breath and fatique, would not reintroduce beta blockade, encourage ambulation and monitor chronotropic response. (3) HTN (hypertension) Current Visit: Yes Status: Acute Not well controlled, continue to monitor on Cozaar. Qualifiers: Hypertension type: essential hypertension Qualified Code(s): I10 - Essential (primary) hypertension Discussion w patient/family: The assessment and plan as outlined above was discussed with the patient and/or family members who expressed understanding and agreement. All questions were answered. Thank you for involving us in the care of your patient. Please call with any questions. Subjective Principal diagnosis: Bradycardia Interval history: PT reports feels much better, "like her old self". She reports is now able to ambulate in her room with sensation of fatique, episodes of shortness of breath have resolved. Objective Vital Signs, Last 4 Hours Temp Pulse Resp BP Pulse Ox 12/03/17 19:21 98.2 F 81 18 190/84 94 General: Conversant, No Apparent Distress HEENT: Atraumatic, Normocephaly, Mucus Membranes Moist Neck: No JVD, Normal carotid pulses Cardiac: Reg Rate and Rhythm, Normal S1 and S2, No Murmur Lungs: Normal Breath Sounds, No Wheeze, Rales, Rhonchi Neuro: Alert and responsive, No focal deficits noted Abdomen: Soft, Non-Tender Musculoskeletal: No Chest Wall Tenderness Extremities: No Clubbing, No Cyanosis, No Edema, Normal Pulses Results 12/03/17 08:40 12/03/17 08:40 Lab Results 12/03/17 12/03/17 08:40 08:40 WBC 6.1 Hgb 10.9 L Hct 32.9 L Plt Count 188 Sodium 140 Potassium 4.2 Chloride 107 Carbon Dioxide 26 BUN 31 H Creatinine 1.30 H Glucose 137 H Calcium 9.0 Consult Discharge Plan - Plan Referrals: Lee Cuadra MD [Primary Care Provider] -
[2017-12-03] MEDS: *HR* HYDROcodone/Acet 5/325 mg TABLET PO PRN (22:50)
[2017-12-04] MEDS: *HR* HYDROcodone/Acet 5/325 mg TABLET PO PRN (07:58)
[2017-12-04] MEDS: Multivit/Ca/Min/Fe/FA 1 TAB TABLET PO SCH (07:58)
[2017-12-04] MEDS: *HR* Heparin 5,000 UNIT/ML VIAL SQ SCH ×3 (07:58→23:42)
[2017-12-04] MEDS: Bumetanide 1 MG TABLET PO SCH (07:58)
[2017-12-04] MEDS: Aspirin Enteric Coated 81 MG Tablet PO SCH (08:18)
[2017-12-04] MEDS ORDERED: amLODIPine 5 MG TABLET PO ONE (09:46)
[2017-12-04 10:43] LABS: Basophils # 0.1 K/mcL (0.0-0.2); Basophils % 0.7 %; Eosinophils # 0.3 K/mcL (0.0-0.6); Hematocrit 37.3 % (35.3-44.9); Hemoglobin 12.3 g/dL (11.5-15.4); Immature Granulocytes % 0.3 % (0-4); Lymphocytes # 2.2 K/mcL (0.6-4.6); Mean Corpuscular Hemoglobin 30.1 pg (28.0-33.3); Mean Corpuscular Volume 91.4 fL (83.0-100.0); Mean Platelet Volume 10.8 fL (9.4-12.4); Monocytes # 0.4 K/mcL (0.0-1.3); Monocytes % 6.4 %; Neutrophils # 3.7 K/mcL (1.6-8.9); Platelet Count 236 K/mcL (140-400); Red Blood Count 4.08 M/mcL (3.82-4.97); Red Cell Distribution Width 13.8 % (11.5-14.5); Segmented Neutrophils % 55.6 %
[2017-12-04 11:17] LABS: Calcium 9.4 mg/dL (8.6-10.3); Potassium 3.9 mEq/L (3.5-5.1)
--- NOTE | 2017-12-04 13:31 | Cardiology Progress Note ---
<Hussain Giordano - Last Filed: 12/04/17 16:00> Date of Encounter: 12/04/17 Time of Encounter: 13:29 Assessment and Plan (1) Second degree AV block, Mobitz type II Current Visit: Yes Status: Acute Continue to encourage ambulation. EKG done on December 032017 shows sinus rhythm at a rate of 76 bpm. Also shows right bundle branch block. This EKG looks similar to EKG done on 03/14/2007. Second degree AV block, Mobitz type II is resolved with BB cessation. Plan: - Prescription for a 48hour holter monitor on discharge - Follow up with cardiology outpatient - Cardiology signing off (2) HTN (hypertension) Current Visit: Yes Status: Acute Not well controlled, continue to monitor on Cozaar. Plan: - Avoid any additional beta blockers - Blood pressure management to be continued by primary team Qualifiers: Hypertension type: essential hypertension Qualified Code(s): I10 - Essential (primary) hypertension (3) Shortness of breath Current Visit: Yes Status: Acute Has resolved with recovery of heart rate, now with excellent exercise tolerence. (4) Chest pain Current Visit: Yes Status: Acute See notes above Qualifiers: Chest pain type: other chest pain Qualified Code(s): R07.89 - Other chest pain; R07.8 - Other chest pain Discussion w patient/family: The assessment and plan as outlined above was discussed with the patient and/or family members who expressed understanding and agreement. All questions were answered. Thank you for involving us in the care of your patient. Please call with any questions. Subjective Principal diagnosis: Bradycardia Interval history: Patient is an 87-year-old female with a past medical history of HLD, HTN, CK D stage III, and hysterectomy initially presenting to the emergency department 3 days ago for 2 months of weakness, chest pain, and shortness of breath. Cardiology was consulted for Mobitz type II. The patient was taken off her Lopressor 25 mg twice daily. Since that time the patient's heart block has resolved she is no longer bradycardic with a heart rate currently in the 80s. Patient states that she feels much improved and that she is able to tolerate walking from the bed to the bathroom. Patient has had recent (2017) nuclear stress test, myocardial perfusion scan, an echocardiogram which were negative for ischemia and showed an ejection fraction of 60-65%. At this time the patient states she is currently feeling improved, does not feel short of breath and is not having chest pain. Objective Vital Signs, Last 4 Hours Temp Pulse Resp BP Pulse Ox 12/04/17 13:03 179/98 12/04/17 10:53 97.8 F 83 18 93 General: Conversant, No Apparent Distress HEENT: Atraumatic, Normocephaly, Mucus Membranes Moist Neck: No JVD, Normal carotid pulses Cardiac: Reg Rate and Rhythm, Normal S1 and S2, No Murmur Lungs: Normal Breath Sounds, No Wheeze, Rales, Rhonchi Neuro: Alert and responsive, No focal deficits noted Abdomen: Soft, Non-Tender Skin: No rashes noted on visualized skin Musculoskeletal: No Chest Wall Tenderness Extremities: No Clubbing, No Cyanosis, No Edema, Normal Pulses Results 12/04/17 10:31 12/04/17 10:31 Lab Results 12/04/17 12/04/17 10:31 10:31 WBC 6.7 Hgb 12.3 Hct 37.3 Plt Count 236 Sodium 138 Potassium 3.9 Chloride 105 Carbon Dioxide 20 L BUN 30 H Creatinine 1.34 H Glucose 213 H Calcium 9.4 - EKG Interpretation EKG results cardiology: personally reviewed, sinus rhythm, no diagnostic ischemia, right bundle branch block Consult Discharge Plan - Plan Referrals: Marck Sauceda DO [Partnered Physician] - (OFFICE WILL CALL PATIENT AT HOME WITH FOLLOW UP APPOINTMENT) Lee Cuadra MD [Primary Care Provider] - 12/13/17 1:00 pm () <Jeaneth Damon - Last Filed: 12/04/17 17:00> Date of Encounter: 12/04/17 Assessment and Plan Discussion w patient/family: I examined this patient and my medical decision-making was reviewed with the Resident Physician. I agree with the documented findings, disposition and treatment plan. Beta johanna held. Heart rates average 80 bpm, no pauses. Patient feeling well. Recommend holding beta johanna. Hypertension control per primary service. Twenty-four hour holter at discharge. Will sign off. Please call with questions. Objective Vital Signs, Last 4 Hours Temp Pulse Resp BP Pulse Ox 12/04/17 16:11 98.1 F 88 17 164/73 95 12/04/17 13:03 179/98 Results 12/04/17 10:31 04/16/18 10:31 Lab Results 12/04/17 12/04/17 10:31 10:31 WBC 6.7 Hgb 12.3 Hct 37.3 Plt Count 236 Sodium 138 Potassium 3.9 Chloride 105 Carbon Dioxide 20 L BUN 30 H Creatinine 1.34 H Glucose 213 H Calcium 9.4
--- NOTE | 2017-12-04 19:46 | Internal Med Progress Note ---
Date of Encounter: 12/04/17 Time of Encounter: 11:00 - Assessment and plan (1) Second degree AV block, Mobitz type II Current Visit: Yes Status: Acute Assessment and plan: Patient presented with symptomatic bradycardia which has now resolved Cardiology recommendations for discontinuing beta johanna and to discharge with Holter monitor (2) HTN (hypertension) Current Visit: Yes Status: Acute Assessment and plan: Patient with uncontrolled blood pressures due to discontinuation of beta johanna Norvasc added today in addition to continuing Cozaar We will continue to monitor Qualifiers: Hypertension type: essential hypertension Qualified Code(s): I10 - Essential (primary) hypertension (3) HLD (hyperlipidemia) Current Visit: Yes Status: Acute Assessment and plan: Continue statin Qualifiers: Hyperlipidemia type: unspecified Qualified Code(s): E78.5 - Hyperlipidemia , unspecified (4) DVT prophylaxis Current Visit: Yes Status: Acute Assessment and plan: Continue subcutaneous heparin - Time Spent With Patient Total time spent is greater than 50% in coordination of care (as documented) at patient's floor/unit and/or counseling patient: - Subjective Interval history: Patient presented with symptomatic bradycardia which has now resolved but now has uncontrolled blood pressures due to discontinuation of beta johanna - Constitutional Vitals: Temp Pulse Resp BP Pulse Ox 97.5 F L 93 19 171/90 96 12/04/17 19:00 12/04/17 19:00 12/04/17 19:00 12/04/17 19:00 12/04/17 19:00 General appearance: Present: A&O X 3, pleasant, no acute distress, answers questions appropriately - Respiratory Respiratory exam: Present: CTAB. Absent: accessory muscle use, rales, rhonchi, wheezes - Cardiovascular Cardiovascular exam: Present: RRR, +S1, +S2. Absent: diastolic murmur, gallop, rubs, systolic murmur Internal Medicine: Result - Labs CBC & Chem 7: 12/04/17 10:31 12/04/17 10:31 Labs: Short CBC 12/04/17 Range/Units 10:31 WBC 6.7 (4.3-11.1) K/mcL Hgb 12.3 (11.5-15.4) g/dL Hct 37.3 (35.3-44.9) % Plt Count 236 (140-400) K/mcL Neutrophils # 3.7 (1.6-8.9) K/mcL BMP 12/04/17 10:31 Sodium 138 Potassium 3.9 Chloride 105 Carbon Dioxide 20 L BUN 30 H Creatinine 1.34 H Glucose 213 H Calcium 9.4 - ABG Interpretation ABG results: PT/INR, D-dimer PT 11.2 Seconds (9.4-12.1) 12/02/17 04:47 Consult Discharge Plan - Plan Referrals: Marck Sauceda DO [Partnered Physician] - (OFFICE WILL CALL PATIENT AT HOME WITH FOLLOW UP APPOINTMENT) Lee Cuadra MD [Primary Care Provider] - 12/13/17 1:00 pm ()
[2017-12-04] MEDS: Acetaminophen 325 MG TABLET PO PRN (23:46)
[2017-12-05] MEDS: *HR* Heparin 5,000 UNIT/ML VIAL SQ SCH ×3 (08:04→23:42)
[2017-12-05] MEDS: Bumetanide 1 MG TABLET PO SCH (08:11)
[2017-12-05] MEDS: Multivit/Ca/Min/Fe/FA 1 TAB TABLET PO SCH (08:12)
[2017-12-05] MEDS: Aspirin Enteric Coated 81 MG Tablet PO SCH (08:12)
[2017-12-05] MEDS: amLODIPine 5 MG TABLET PO SCH (11:23)
[2017-12-05] MEDS: Acetaminophen 325 MG TABLET PO PRN (11:24)
[2017-12-05] MEDS: cloNIDine HCl 0.1 MG TABLET PO SCH (14:32)
--- NOTE | 2017-12-05 15:58 | Internal Med Progress Note ---
Date of Encounter: 12/05/17 Time of Encounter: 10:45 - Assessment and plan (1) Second degree AV block, Mobitz type II Current Visit: Yes Status: Acute Assessment and plan: Patient was admitted with symptomatic bradycardia. Cardiology was consulted, beta johanna has been held. Heart rate is currently improved. Continue telemetry monitoring. Echocardiogram from last month showed preserved ejection fraction, asymmetric hypertrophy of the basal septum, mild LV diastolic dysfunction, evidence of a PFO with [id number] shunt. Cardiology recommends Holter monitoring at discharge. Outpatient follow-up. (2) DVT prophylaxis Current Visit: Yes Status: Acute Assessment and plan: Continue subcutaneous heparin (3) HTN (hypertension) Current Visit: Yes Status: Acute Assessment and plan: Blood pressure remains uncontrolled with systolic blood pressure greater than 170 consistently. Continue losartan, started amlodipine, with no significant improvement in blood pressure. We will add clonidine and monitor closely. Patient had a reported allergic reaction to IV hydralazine with perioral tingling and numbness, feeling sick. Mild troponin leak likely due to uncontrolled hypertension. Qualifiers: Hypertension type: essential hypertension Qualified Code(s): I10 - Essential (primary) hypertension (4) HLD (hyperlipidemia) Current Visit: Yes Status: Chronic Qualifiers: Hyperlipidemia type: unspecified Qualified Code(s): E78.5 - Hyperlipidemia , unspecified (5) CKD (chronic kidney disease), stage III Current Visit: Yes Status: Chronic Assessment and plan: Serum creatinine at baseline. Continue to monitor closely. - Time Spent With Patient Total time spent is greater than 50% in coordination of care (as documented) at patient's floor/unit and/or counseling patient: - Subjective Interval history: Reports occipital headache, for the last few days. Denies chest pain, nausea, vomiting, palpitations. No blurred vision or focal weakness. Blood pressure continues to be high. - Constitutional Vitals: Temp Pulse Resp BP Pulse Ox 98.3 F 85 14 168/74 95 12/05/17 10:22 12/05/17 10:22 12/05/17 10:22 12/05/17 13:20 12/05/17 10:22 General appearance: Present: A&O X 3, answers questions appropriately - Respiratory Respiratory exam: Present: CTAB. Absent: accessory muscle use, rales, rhonchi, wheezes - Cardiovascular Cardiovascular exam: Present: RRR, +S1, +S2. Absent: diastolic murmur, gallop, rubs, systolic murmur - GI/Abdominal GI/Abdominal exam: Present: normal bowel sounds, soft, no peritoneal signs. Absent: distended, tenderness - Extremities Exam Extremities exam: Present: full ROM, pedal edema, warm, radial pulses palpable and symmetrical. Absent: calf tenderness, cyanotic - Neurological Exam Neurological exam: Present: CN II-XII intact, oriented X3, no focal deficits. Absent: pronater drift, facial droop, speech deficit Internal Medicine: Result - Labs CBC & Chem 7: 12/04/17 10:31 12/04/17 10:31 Labs: Cardiac Enzymes 12/05/17 Range/Units 12:34 Troponin I 0.03 (< 0.04) ng/mL - ABG Interpretation ABG results: PT/INR, D-dimer PT 11.2 Seconds (9.4-12.1) 12/02/17 04:47 Consult Discharge Plan - Plan Referrals: Marck Sauceda DO [Partnered Physician] - (OFFICE WILL CALL PATIENT AT HOME WITH FOLLOW UP APPOINTMENT) Lee Cuadra MD [Primary Care Provider] - 12/13/17 1:00 pm ()
[2017-12-06] MEDS: *HR* Heparin 5,000 UNIT/ML VIAL SQ SCH (07:45)
[2017-12-06] MEDS: Aspirin Enteric Coated 81 MG Tablet PO SCH (07:46)
[2017-12-06] MEDS: cloNIDine HCl 0.1 MG TABLET PO SCH (07:46)
[2017-12-06] MEDS: Multivit/Ca/Min/Fe/FA 1 TAB TABLET PO SCH (07:46)
[2017-12-06] MEDS: Bumetanide 1 MG TABLET PO SCH (07:46)
[2017-12-06] MEDS: amLODIPine 5 MG TABLET PO SCH (07:46)
[2017-12-06 11:06] VITALS: BP 145/78
--- NOTE | 2017-12-06 11:41 | Discharge Summary ---
- NOTES TO OUTPATIENT PROVIDER Notes to Outpatient Provider: Uncontrolled HTN, symptomatic bradycardia, being discharged on Holter, to be followed by Cardiology Orders not resulted at time of discharge: Pending orders 12/04/17 13:29 ECG 48 holter monitor setup [ECG] Routine Date of Encounter: 12/06/17 Time of Encounter: 11:38 - Discharge Diagnosis (1) Second degree AV block, Mobitz type II Priority: Primary Status: Acute (2) HTN (hypertension) Priority: Primary Status: Chronic Qualifiers: Hypertension type: essential hypertension Qualified Code(s): I10 - Essential (primary) hypertension (3) HLD (hyperlipidemia) Priority: Secondary Status: Chronic Qualifiers: Hyperlipidemia type: unspecified Qualified Code(s): E78.5 - Hyperlipidemia , unspecified (4) CKD (chronic kidney disease), stage III Priority: Secondary Status: Chronic Hospital course: Ms. Robles is a 87 year old female with the above medical problems, who was admitted with symptomatic bradycardia. She was noted to be on beta johanna- metoprolol, which has been held since admission. Patient's heart rate gradually improved. She was also noted to have Mobitz type II second-degree heart block. Cardiology was consulted, agreed with holding beta johanna, recommended Holter monitoring at discharge and outpatient cardiology follow-up. Repeat EKG showed normal sinus rhythm. Patient was noted to have uncontrolled hypertension, holding up her discharge. She was started on amlodipine, had an allergic reaction with perioral tingling and numbness with IV hydralazine. She cannot be started on beta johanna. She was subsequently started on clonidine. Blood pressure is noted to be much better today, she is medically stable for discharge. Renal artery ultrasound was ordered due to uncontrolled hypertension, the report of which is pending at this time, will be followed up by PCP. Discharge discussed with: patient - Time Spent with Patient Total time spent providing and/or coordinating discharge services: Greater than 30 minutes (40 min) - Discharge Medications Prescriptions: amLODIPine [Norvasc] 10 mg PO DAILY #30 tablet cloNIDine HCl [CloNIDine HCl] 0.1 mg PO DAILY #30 tablet Home Medications: Aspirin [Lo-Dose Aspirin EC] 81 mg PO DAILY 12/01/17 [History] Atorvastatin [Lipitor] 40 mg PO DAILY 12/01/17 [History] Bumetanide [Bumex] 1 mg PO DAILY 12/01/17 [History] Cyanocobalamin (Vitamin B-12) [Vitamin B-12] 1,000 mcg PO DAILY 12/01/17 [ History] Losartan Potassium [Cozaar] 100 mg PO DAILY 12/01/17 [History] Omeprazole [PriLOSEC] 40 mg PO DAILY 12/01/17 [History] Potassium Chloride 10 meq PO BID 12/01/17 [History] Vit A/Vit C/Vit E/Zinc/Copper [Preservision Areds Tablet] 1 each PO DAILY [History] amLODIPine [Norvasc] 10 mg PO DAILY #30 tablet 12/06/17 [Rx] cloNIDine HCl [CloNIDine HCl] 0.1 mg PO DAILY #30 tablet 12/06/17 [Rx] Allergies/Adverse Reactions: 3 Allergy/AdvReac Type Severity Reaction Status Date / Time No Known Allergies Allergy Verified 12/01/17 13:40 Date of admission: 12/01/17 17:13 Primary care physician: Lee Cuadra MD Consults: 12/03/17 08:07 Consult to Cardiology [CONS] Routine Comment: Consulting Provider: Cardiology Sparkill Reason for Consult: symptomatic bradycardia Time Notified: 08:08 Call Completed: Yes Discharging clinician: Stacy Anderson Anticipated date of discharge: 12/06/17 - Constitutional Vitals: Temp Pulse Resp BP Pulse Ox 97.5 F L 72 18 145/78 97 12/06/17 11:04 12/06/17 11:04 12/06/17 11:04 12/06/17 11:04 12/06/17 11:04 General appearance: Present: A&O X 3, answers questions appropriately - Cardiovascular Cardiovascular exam: Present: RRR, +S1, +S2. Absent: diastolic murmur, gallop, rubs, systolic murmur - Patient Status Disposition: Home, Self-Care Condition: Good Functional capacity at discharge: independent ambulation Overall status at discharge: patient is progressing back to baseline - Discharge Instructions Instructions: Clonidine (By mouth), Amlodipine (By mouth), Holter Monitoring ( DC), Chronic Hypertension (DC) Follow Up With: Marck Sauceda DO [Partnered Physician] - (OFFICE WILL CALL PATIENT AT HOME WITH FOLLOW UP APPOINTMENT) Lee Cuadra MD [Primary Care Provider] - 12/13/17 1:00 pm () Additional Instructions: F/up with Cardiology in 1-2 weeks Holter monitor f/up - Diet and Activity Activity: resume usual activities as tolerated Diet: low fat, low cholesterol, low salt diet, other (renal)
--- NOTE | 2017-12-08 11:54 | Electrocardiograph Report ---
[place] [id number] Test Date: 2017-12-03 Pat Name: Rosalba Travis Department: 110 Room: 2N06 Gender: F Application Performance Engineer: : [id number] Requested By: Kristofer Aleman Order Number: [id number] Reading MD: Yobany Frausto Measurements Intervals [place] Rate: 76 P: 58 FL: 175 QRS: 16 QRSD: 123 T: 3 QT: 410 QTc: 440 Interpretive Statements SINUS RHYTHM RIGHT BUNDLE BRANCH BLOCK Electronically Signed On 12-08-2017 11:52:59 EDT by Yobany Frausto
== END 2017-12-06 14:46 | disposition home or self-care (01) | DRG 309 ==
LOC: EMEROO 12:03 → 2SOUTHHOLD 12:03 → 2NNU 17:05 → SUATTDRO 17:13
PROVIDERS: ADMIT Internal Medicine; ATTEND Internal Medicine

== ENCOUNTER 2018-11-03 10:56 | Observation (INO) ==
[2018-11-03] MEDS ORDERED: Orphenadrine 60 MG/2 ML VIAL IV ONE (12:13)
[2018-11-03] MEDS ORDERED: *HR* HYDROcodone/Acet 5/325 mg TABLET PO ONE (12:13)
--- NOTE | 2018-11-03 12:17 | Emergency Department Note ---
Disposition Clinical Impression: Lumbar radiculopathy, Intractable low back pain Disposition: Admitted As Inpatient Condition: Fair Referrals: Lee Cuadra MD [Primary Care Provider] - Forms: ED Satisfaction Letter Time of Disposition: 16:45 Back Pain HPI - General Chief Complaint: ED Back Pain/Injury Stated Complaint: back pain into LLE Time Seen by Provider: 11/03/18 11:54 Source: patient Mode of arrival: ambulatory Limitations: no limitations Nursing Notes Reviewed: Yes Vital Signs Reviewed: Yes - History of Present Illness HPI Narrative: Patient presenting to the ED if the chief complaint of left-sided back pain. Patient reports a history of spinal stenosis. States that she was here a few months ago for similar symptoms of the right leg. States that it better. She was gardening about 4 days ago and had onset of left-sided pain. She denies any fever or chills. No chest pain or shortness breath. No abdominal pain. She does complain of some subjective numbness but no weakness. Pain is worse with bending forward. No urinary retention, bowel or bladder incontinence. No fever. - Related Data Home Medications Medication Instructions Recorded Confirmed Aspirin [Lo-Dose Aspirin EC] 81 mg PO DAILY 12/01/17 07/03/18 Atorvastatin [Lipitor] 40 mg PO DAILY 12/01/17 07/03/18 Bumetanide [Bumex] 1 mg PO DAILY 12/01/17 07/03/18 Cyanocobalamin (Vitamin B-12) 1,000 mcg PO DAILY 12/01/17 07/03/18 [Vitamin B-12] Losartan Potassium [Cozaar] 100 mg PO DAILY 12/01/17 07/03/18 Omeprazole [PriLOSEC] 40 mg PO DAILY 12/01/17 07/03/18 Potassium Chloride 10 meq PO BID 12/01/17 07/03/18 Previous Rx's Medication Instructions Recorded amLODIPine [Norvasc] 10 mg PO DAILY #30 tablet 12/06/17 cloNIDine HCl [CloNIDine HCl] 0.1 mg PO DAILY #30 tablet 12/06/17 predniSONE [PredniSONE] 20 mg PO BID #10 tablet 07/03/18 Allergies Allergy/AdvReac Type Severity Reaction Status Date / Time No Known Allergies Allergy Verified 07/03/18 11:41 Review of Systems: As reviewed in the HPI. All other systems reviewed are negative or normal. Past Medical History - Past Medical History Attestation: Yes The following information was validated with the patient. Source: patient Medical history: Reports: diabetes, hypertension Surgical history: Reports: cholecystectomy, hysterectomy, pacemaker Psychiatric history: Reports: no psych history - Social History Smoking Status: Never smoker Smokeless Tobacco Status: No Alcohol use: Reports: none Drug use: Reports: none Physical Exam CONSTITUTIONAL: [well appearing, alert and in no acute distress] EYES: [EOMI, clear conjunctiva, PERRLA] HENT: [Normocephalic, atraumatic, moist mucus membranes, normal oropharynx] NECK: [normal inspection, full ROM, trachea midline, no obvious swelling] PULMONARY: [normal lung sounds bilaterally, normal chest rise and fall, no respiratory distress or stridor, no wheezes, no rales, no rhonchi CARDIOVASCULAR: [regular rate, regular rhythm, normal heart sounds, no murmurs, distal extremities are warm and well perfused] GASTROINSTESTINAL: [soft, non-tender, non-rigid, non-distended, no guarding, no rebound, normal bowel sounds] GENITOURINARY/RECTAL: [deferred] NEUROLOGIC: [Alert, oriented x3, normal speech, moves all extremities, normal strength and sensation throughout lower extremities.] EXTREMITIES: [Normal inspection, full ROM, no tenderness, no pedal edema, normal capillary refill] MUSCULOSKELETAL: [no gross deformities, atraumatic] SKIN: [No cyanosis, no diaphoresis, normal color, warm, no rash] PSYCHIATRIC: [normal mood and affect] - General Limitations: no limitations General appearance: alert, in no apparent distress Course Course Narrative: Patient presenting with left-sided sciatic pain. We will get a CT scan due to her history of spinal stenosis. Laboratory looks okay. Patient was not feeling much better after Percocet. She did start feeling better after Valium and Dilaudid. We will reevaluate and see if she feels comfortable going home. patient still hurting. will give more dilaudid and get a ct abd/pelvis to r/o any other etiology. CT shows disc herniation slightly worse than previous. patient still uncomfortable. lives at home alone and pain is not well under control. concerned with the high doses of narcotics needed and do not feel comfortable sending her home alone. will admit to the hospitalist service. accepted by Dr. Reeves who recommended steroids which we will order now. Vital Signs Temperature 97.3 F L 11/03/18 11:04 Pulse Rate 84 11/03/18 11:04 Respiratory Rate 20 11/03/18 11:04 Blood Pressure 179/79 11/03/18 11:04 O2 Sat by Pulse Oximetry 100 11/03/18 11:04 Temperature 97.3 F L 11/03/18 11:04 Pulse Rate 87 11/03/18 15:24 Respiratory Rate 16 11/03/18 15:24 Blood Pressure 174/79 11/03/18 15:24 O2 Sat by Pulse Oximetry 100 11/03/18 15:24 Oxygen Delivery Oxygen Delivery Room Air Back Pain/Injury - Lab Data Result diagrams: 11/03/18 12:31 11/03/18 12:31 Lab Results 11/03/18 11/03/18 11/03/18 Range/Units 12:31 12:31 12:40 WBC 12.0 H (4.3-11.1) K/mcL RBC 4.57 (3.82-4.97) M/mcL Hgb 13.2 (11.5-15.4) g/dL Hct 40.7 (35.3-44.9) % MCV 89.1 (83.0-100.0) fL MCH 28.9 (28.0-33.3) pg MCHC 32.4 (31.6-35.5) g/dL RDW 13.4 (11.5-14.5) % Plt Count 258 (140-400) K/mcL MPV 9.5 (9.4-12.4) fL Immature Gran % 0.3 (0-4) % Seg Neutrophils % 69.2 % Lymphocytes % 21.9 % Monocytes % 6.1 % Eosinophils % 2.0 % Basophils % 0.5 % Neutrophils # 8.3 (1.6-8.9) K/mcL Lymphocytes # 2.6 (0.6-4.6) K/mcL Monocytes # 0.7 (0.0-1.3) K/mcL Eosinophils # 0.2 (0.0-0.6) K/mcL Basophils # 0.1 (0.0-0.2) K/mcL Sodium 136 (136-145) mEq/L Potassium 4.1 (3.5-5.1) mEq/L Chloride 98 (98-107) mEq/L Carbon Dioxide 27 (23-29) mEq/L BUN 28 H (8-23) mg/dL Creatinine 1.39 H (0.60-1.20) mg/dL Est GFR ( Amer) 44 L (> 60) Est GFR (Non-Af Amer) 36 L (> 60) BUN/Creatinine Ratio 20 (6-26) Glucose 179 H (70-105) mg/dL Calculated Osmolality 292 (280-300) Calcium 9.7 (8.6-10.3) mg/dL Urine Color Yellow (Yellow) Urine Clarity Clear (Clear) Urine pH 5.5 (5.0-8.0) pH Units Ur Specific [place] 1.016 (1.010-1.025) Urine Protein Negative (Neg-Trace) mg/dL Urine Glucose (UA) Normal (Normal) mg/dL Urine Ketones Negative (Negative) mg/dL Urine Blood Negative (Negative) Urine Nitrite Negative (Negative) Urine Bilirubin Negative (Negative) Urine Urobilinogen Normal (Normal) mg/dL Ur Leukocyte Esterase Negative (Negative) Ur Culture Indicated? NO (NO)
--- NOTE | 2018-11-03 12:17 | Emergency Department Note ---
Disposition Clinical Impression: Lumbar radiculopathy Disposition: Still a Patient General Adult HPI - General Chief complaint: ED Back Pain/Injury Stated complaint: back pain into LLE Time Seen by Provider: 11/03/18 11:54 Source: patient Limitations: no limitations Nursing Notes Reviewed: Yes Vital Signs Reviewed: Yes - History of Present Illness HPI Narrative: ED ATTESTATION NOTE: I examined this patient and my medical decision-making was reviewed with the Resident Physician/SPLICER MACHINE OPERATOR/PA/Student. I have personally performed a face to face evaluation on this patient & I agree with the documented findings, disposition and treatment plan as described except to the extent set forth below. Patient was seen with emergency medicine resident Dr. KAT LOYA please see copy of his note for details of this encounter Briefly: 88-year-old female presents M Alethea family members in the left lower extremity history spinal stenosis was doing gardening pending over from Monday getting progressively worse. Patient has a history of kidney dysfunction. Patient straight leg raise positivity no acute changes about the bladder habits. No red flags otherwise. Patient get a CT scan of her lumbar sacral spine patient get some screening labs. Analgesics. Disposition pending. Pain Scale: 10 - Related Data Home Medications Medication Instructions Recorded Confirmed Aspirin [Lo-Dose Aspirin EC] 81 mg PO DAILY 12/01/17 07/03/18 Atorvastatin [Lipitor] 40 mg PO DAILY 12/01/17 07/03/18 Bumetanide [Bumex] 1 mg PO DAILY 12/01/17 07/03/18 Cyanocobalamin (Vitamin B-12) 1,000 mcg PO DAILY 12/01/17 07/03/18 [Vitamin B-12] Losartan Potassium [Cozaar] 100 mg PO DAILY 12/01/17 07/03/18 Omeprazole [PriLOSEC] 40 mg PO DAILY 12/01/17 07/03/18 Potassium Chloride 10 meq PO BID 12/01/17 07/03/18 Previous Rx's Medication Instructions Recorded amLODIPine [Norvasc] 10 mg PO DAILY #30 tablet 12/06/17 cloNIDine HCl [CloNIDine HCl] 0.1 mg PO DAILY #30 tablet 12/06/17 predniSONE [PredniSONE] 20 mg PO BID #10 tablet 07/03/18 Allergies Allergy/AdvReac Type Severity Reaction Status Date / Time No Known Allergies Allergy Verified 07/03/18 11:41 Past Medical History - Past Medical History Medical history: Reports: diabetes, hypertension Surgical history: Reports: cholecystectomy, hysterectomy, pacemaker Psychiatric history: Reports: no psych history - Social History Smoking Status: Never smoker Smokeless Tobacco Status: No Alcohol use: Reports: none Drug use: Reports: none Physical Exam - General Limitations: no limitations General appearance: alert, in no apparent distress Course Vital Signs Temperature 97.3 F L 11/03/18 11:04 Pulse Rate 84 11/03/18 11:04 Respiratory Rate 20 11/03/18 11:04 Blood Pressure 179/79 11/03/18 11:04 O2 Sat by Pulse Oximetry 100 11/03/18 11:04 Temperature 97.3 F L 11/03/18 11:04 Pulse Rate 84 11/03/18 11:04 Respiratory Rate 20 11/03/18 11:04 Blood Pressure 179/79 11/03/18 11:04 O2 Sat by Pulse Oximetry 100 11/03/18 11:04 Oxygen Delivery Oxygen Delivery Room Air
[2018-11-03 12:52] LABS: Bilirubin,Urine Negative (Negative); Blood,Urine Negative (Negative); Clarity,Urine Clear (Clear); Color,Urine Yellow (Yellow); Glucose,Urine (UA) Normal (Normal); Ketones,Urine Negative (Negative); Leukocyte Esterase,Urine Negative (Negative); Nitrite,Urine Negative (Negative); PH,Urine 5.5 pH Units (5.0-8.0); Protein,Urine Negative (Neg-Trace); Specific Gravity,Urine 1.016 (1.010-1.025); Urobilinogen,Urine Normal (Normal)
[2018-11-03 12:57] LABS: Basophils # 0.1 K/mcL (0.0-0.2); Basophils % 0.5 %; Eosinophils # 0.2 K/mcL (0.0-0.6); Hematocrit 40.7 % (35.3-44.9); Hemoglobin 13.2 g/dL (11.5-15.4); Immature Granulocytes % 0.3 % (0-4); Lymphocytes # 2.6 K/mcL (0.6-4.6); Lymphocytes % 21.9 %; Mean Corpuscular HGB Conc 32.4 g/dL (31.6-35.5); Mean Corpuscular Hemoglobin 28.9 pg (28.0-33.3); Mean Corpuscular Volume 89.1 fL (83.0-100.0); Mean Platelet Volume 9.5 fL (9.4-12.4); Monocytes # 0.7 K/mcL (0.0-1.3); Monocytes % 6.1 %; Neutrophils # 8.3 K/mcL (1.6-8.9); Platelet Count 258 K/mcL (140-400); Red Blood Count 4.57 M/mcL (3.82-4.97); Red Cell Distribution Width 13.4 % (11.5-14.5); Segmented Neutrophils % 69.2 %
[2018-11-03 13:17] LABS: Calcium 9.7 mg/dL (8.6-10.3); Potassium 4.1 mEq/L (3.5-5.1)
[2018-11-03] MEDS ORDERED: diazePAM 5 MG TABLET PO ONE (13:23)
[2018-11-03] MEDS ORDERED: *HR* HYDROmorphone (PF) 1 MG/ML SYRINGE IVP ONE ×2 (13:52→15:01)
[2018-11-03] MEDS ORDERED: methylPREDNISolone 125 MG/2 ML VIAL IVP ONE (16:43)
[2018-11-03] MEDS ORDERED: Naloxone 0.4 MG/ML INJ IVP PRN (18:49)
[2018-11-03] MEDS ORDERED: *HR* OxyCODONE Immed Rel 5 MG TABLET PO PRN (18:58)
[2018-11-03] MEDS ORDERED: 0.9 % Sodium Chloride 1,000 ML IVC SCH (19:00)
[2018-11-03] MEDS: *HR* OxyCODONE Immed Rel 5 MG TABLET PO PRN (20:48)
[2018-11-03] MEDS: Acetaminophen 325 MG TABLET PO SCH (21:00)
--- NOTE | 2018-11-03 21:28 | Internal Med History&Physical ---
Date of Encounter: 11/03/18 Time of Encounter: 19:00 Internal Medicine - H&P: HPI Chief complaint: Low back pain with radiation to left leg Admitted From: Home Plans for Post Hospital Care: Home History of present illness: The patient is an 88-year-old woman with long-standing history of low back pain. It was on Monday morning (3 days ago), when she developed a significant pain in her lower back, radiating to left groin and down her left leg to the area below left knee. The pain is not associated with weakness in that extremity. It makes her ambulation very difficult; can hardly walk from room to room in her home. She had a similar episode with pain in the right lower extremity in June 2018. Lasted for about 3-4 weeks. PAST MEDICAL HX: She has been treated for hypertension, hyperlipidemia and GERD. She does have a pacemaker. She takes her Bumex for recurrent swelling of lower leghas never been diagnosed with congestive heart failure. She has diet-controlled type 2 diabetes mellitus. She had a cholecystectomy, KATYA/BSO, bilateral knee replacement and pacemaker insertion. She had nuclear stress testing in September 2017. It did not show any significant abnormalities. She had echocardiogram in September 2017. It showed ejection fraction of 60-65%. No evidence of diastolic dysfunction. PAST FAMILY HX: See below PAST SOCIAL HX: She has never used tobacco. There is no history of alcohol or illicit drug use. REVIEW OF SYSTEMS: All 14 organ systems were reviewed by me with the patient. Positive and pertinent negative findings are listed above. The rest of organ systems is nega tive. PHYSICAL EXAM: Skin: Free of rash and discoloration. Eyes: Sclera is white. There is no discharge from eyes. ENMT: Oral/pharyngeal mucosa is normal in appearance. There is no discharge from nose or ears. Respiratory: Normal breath sounds with no crackles and wheezes bilaterally. CV: Heart is regular with no gallop or murmur. GI: Abdomen is flat and soft with no palpable mass or visceromegaly. : There is no tenderness in patient's flanks bilaterally. Neuro exam: He has good strength in upper and lower extremities. He has normal eye movements. Straight leg raise is about 15% in left leg and about 30% in the right leg. There is tenderness with palpation of lumbar spine. Psychiatric: He has normal affect. His thought process is appropriate to the situation. ADDITIONAL DATA: CT of the lumbar spine without contrast shows advanced multilevel degenerative disc disease and facet arthropathywith osseous neural foraminal encroachment and neural foraminal narrowing, most notable at L3-4. CT of the abdomen and pelvis without contrast shows disc herniation at L3-L4has increased in size, when compared to the previous exam. It leads to at least moderate, if not severe central canal stenosis. There is evidence for moderate diverticulosis of the large bowel without CT evidence of diverticulitis. CBC shows hemoglobin of 13.2 with WBC of 12.0 thousand. Electrolytes are normal. Creatinine is 1.39 with GFR of 36. She has CKD stage III. UA is normal A/P: Radiculitis, lumbar. Severe DJD of multiple locations (spine, knees and others). She has a disc herniation of L3-4 region. With moderate (possible severe) spinal canal stenosis. She has already received multiple modalities in the emergency department for treatment of pain. I will keep her on lidocaine patch and when necessary oxycodone. I will try Norflex. I will present her to Dr. Hartley, orthopedic surgery. She will get physical therapy, when her pain is stabilized. She has had a pacemaker inserted. It may prohibit us from doing MRI of lumbar spine. We need to check, if this MRI friendly device. 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 I will continue Diovan, Norvasc and clonidine. Other problems are mentioned in past medical history. They are stable/under control. Past Med Surg Social Fam HX - Past Medical History Medical history: diabetes, hypertension, other Additional medical history: spinal stenosis, diet-controlled DM, CKD Psychiatric history: no psych history - Past Surgical History Surgical History: cholecystectomy, KATYA/BSO, pacemaker Additional surgical history: bilateral knee replacements - Social History Smoking Status: Never smoker Smokeless Tobacco Status: No Alcohol use: none Drug use: none - Family History Mother Living Status: Hx Family Cardiac Disorders: Yes Father Living Status: Hx Family Cardiac Disorders: Yes Brother Living Status: Still Living Hx Family Cardiac Disorders: Yes Internal Medicine - H&P: Meds Aspirin [Lo-Dose Aspirin EC] 81 mg PO DAILY 12/01/17 [History] Atorvastatin [Lipitor] 40 mg PO DAILY 12/01/17 [History] Bumetanide [Bumex] 1 mg PO DAILY 12/01/17 [History] Cyanocobalamin (Vitamin B-12) [Vitamin B-12] 1,000 mcg PO DAILY 12/01/17 [History] Omeprazole [PriLOSEC] 40 mg PO DAILY 12/01/17 [History] Potassium Chloride 10 meq PO BID 12/01/17 [History] Valsartan [Diovan] 160 mg PO DAILY 11/03/18 [History] amLODIPine [Norvasc] 5 mg PO DAILY 11/03/18 [History] cloNIDine HCl [CloNIDine HCl] 0.1 mg PO DAILY@2100 11/03/18 [History] Allergy/AdvReac Type Severity Reaction Status Date / Time No Known Allergies Allergy Verified 07/03/18 11:41 - Constitutional Vitals: Temp Pulse Resp BP Pulse Ox 97.9 F 108 16 157/77 93 11/03/18 18:54 11/03/18 21:23 11/03/18 18:54 11/03/18 21:23 11/03/18 18:54 General appearance: Present: A&O X 3, answers questions appropriately Exam: xx Internal Med - H&P Results - Labs CBC & Chem 7: 11/03/18 12:31 11/03/18 12:31 Labs: Short CBC 11/03/18 Range/Units 12:31 WBC 12.0 H (4.3-11.1) K/mcL Hgb 13.2 (11.5-15.4) g/dL Hct 40.7 (35.3-44.9) % Plt Count 258 (140-400) K/mcL Neutrophils # 8.3 (1.6-8.9) K/mcL BMP 11/03/18 12:31 Sodium 136 Potassium 4.1 Chloride 98 Carbon Dioxide 27 BUN 28 H Creatinine 1.39 H Glucose 179 H Calcium 9.7 Urine 11/03/18 Range/Units 12:40 Urine Color Yellow (Yellow) Urine Clarity Clear (Clear) Urine pH 5.5 (5.0-8.0) pH Units Ur Specific [place] 1.016 (1.010-1.025) Urine Protein Negative (Neg-Trace) mg/dL Urine Glucose (UA) Normal (Normal) mg/dL - Impressions ITS Impressions Lumbar Spine CT 11/03/18 12:14 IMPRESSION: Advanced multilevel degenerative disc disease and facet arthropathy with osseous neural foraminal encroachment and neural foraminal narrowing, most notable at L3-4 as described above. D/ / Evangelista Guerra / Evangelista Guerra Interpreting Provider: Evangelista Guerra Knee X-Ray 11/03/18 12:17 IMPRESSION: Total knee arthropasty without acute hardware complication. D/ / Real Guerra MD / Real Guerra MD Interpreting Provider: Real Guerra MD Abdomen/Pelvis CT 11/03/18 15:01 IMPRESSION: Disc herniation at L3-L4, which has increased in size when compared to the previous exam, and leads to at least moderate if not severe central canal stenosis. Otherwise, no acute abnormality identified. Moderate diverticulosis of the large bowel without CT evidence of diverticulitis. Moderate-sized hiatal hernia. D/ / Sourav Nam MD / Sourav Nam MD Interpreting Provider: Sourav Nam MD - Assessment and Plan (1) Lumbar radiculopathy Current Visit: Yes Status: Acute (2) DJD (degenerative joint disease), multiple sites Current Visit: Yes Status: Chronic Qualifiers: Osteoarthritis type: primary Qualified Code(s): M15.0 - Primary generalized (osteo)arthritis (3) Cardiac pacemaker Current Visit: Yes Status: Acute (4) Hypertensive renal disease with renal failure Current Visit: Yes Status: Acute (5) CKD (chronic kidney disease), stage III Current Visit: Yes Status: Chronic - Time Spent With Patient Total time spent is greater than 50% in coordination of care (as documented) at patient's floor/unit and/or counseling patient: 25 - 35 minutes
[2018-11-04] MEDS: Acetaminophen 325 MG TABLET PO SCH ×3 (01:33→12:54)
[2018-11-04] MEDS: *HR* OxyCODONE Immed Rel 5 MG TABLET PO PRN ×2 (03:02→14:33)
[2018-11-04] MEDS ORDERED: amLODIPine 5 MG TABLET PO SCH (09:00)
[2018-11-04] MEDS ORDERED: Aspirin Enteric Coated 81 MG Tablet PO SCH (09:00)
[2018-11-04] MEDS ORDERED: Valsartan 160 MG TABLET PO SCH (09:00)
[2018-11-04] MEDS ORDERED: Bumetanide 1 MG TABLET PO SCH (09:00)
[2018-11-04 11:22] VITALS: BP 131/73
--- NOTE | 2018-11-04 12:37 | Discharge Summary ---
Date of Encounter: 11/04/18 Time of Encounter: 12:34 - Discharge Diagnosis (1) Lumbar radiculopathy Priority: Primary Status: Acute (2) Spinal stenosis, lumbar Priority: Secondary Status: Chronic Qualifiers: Neurogenic claudication status: unspecified Qualified Code(s): M48.061 - Spinal stenosis, lumbar region without neurogenic claudication (3) DJD (degenerative joint disease), multiple sites Priority: Secondary Status: Chronic Qualifiers: Osteoarthritis type: primary Qualified Code(s): M15.0 - Primary generalized (osteo)arthritis (4) Cardiac pacemaker Priority: Secondary Status: Chronic (5) Hypertensive renal disease with renal failure Priority: Secondary Status: Chronic (6) CKD (chronic kidney disease), stage III Priority: Secondary Status: Chronic Hospital course: HOSPITAL COURSE: The patient is an 88-year-old woman with long-standing history of low back pain. We admitted her with low back pain radiating to her left groin and down to left kneemaking her ambulation very difficult. The pain started about 3 days before this admission. She had similar problem in June 2018in the right legsubsided after a few weeks. We did have a CT of lumbar spine. It showed severe DJD of lumbar spine. With multiple level bilateral foraminal narrowings. There is a suspected moderate, possibly severe spinal stenosis secondary to disc herniation at L3-L4 level. We offered her when necessary oxycodone and physical therapy. She got Flexeril. I could not give her nonsteroidals due to her mildly impaired renal function. She felt better by the time of discharge. Her ambulation improved. She has no true weakness in her lower extremities. CONDITION AT DISCHARGE: She is able to get out of bed and ambulate on her ownbetter than before. Denies weakness in extremities. Pain in left leg he is significantly decreased in intensity. Skin: Free of rash and discoloration. Respiratory: Normal breath sounds with no crackles and wheezes bilaterally. CV: Heart is regular with no gallop or murmur. GI: Abdomen is flat and soft with no palpable mass or visceromegaly. Neuro exam: There is no focal deficits. Normal speech, swallowing and gait. Straight leg raise is about 30 on the left side and about 60 on the right side. SEE DISCHARGE ORDERS/MEDICATIONS Discharge discussed with: patient - Time Spent with Patient Total time spent providing and/or coordinating discharge services: Time spent: Greater than 30 minutes (40 minutes...) - Discharge Medications Prescriptions: New Cyclobenzaprine [Flexeril] 10 mg PO HS 10 Days #10 tablet Cyclobenzaprine [Flexeril] 5 mg PO TID PRN 10 Days #15 tablet PRN Reason: Spasms Oxycodone HCl/Acetaminophen [Percocet 10-325 mg Tablet] 1 each PO Q6H PRN 7 Days #21 tablet PRN Reason: Pain Continue Atorvastatin [Lipitor] 40 mg PO DAILY Bumetanide [Bumex] 1 mg PO DAILY Omeprazole [PriLOSEC] 40 mg PO DAILY Potassium Chloride 10 meq PO BID Cyanocobalamin (Vitamin B-12) [Vitamin B-12] 1,000 mcg PO DAILY Aspirin [Lo-Dose Aspirin EC] 81 mg PO DAILY amLODIPine [Norvasc] 5 mg PO DAILY cloNIDine HCl [CloNIDine HCl] 0.1 mg PO DAILY@2100 Valsartan [Diovan] 160 mg PO DAILY Home Medications: Aspirin [Lo-Dose Aspirin EC] 81 mg PO DAILY 12/01/17 [History] Atorvastatin [Lipitor] 40 mg PO DAILY 12/01/17 [History] Bumetanide [Bumex] 1 mg PO DAILY 12/01/17 [History] Cyanocobalamin (Vitamin B-12) [Vitamin B-12] 1,000 mcg PO DAILY 12/01/17 [History] Omeprazole [PriLOSEC] 40 mg PO DAILY 12/01/17 [History] Potassium Chloride 10 meq PO BID 12/01/17 [History] Valsartan [Diovan] 160 mg PO DAILY 11/03/18 [History] amLODIPine [Norvasc] 5 mg PO DAILY 11/03/18 [History] cloNIDine HCl [CloNIDine HCl] 0.1 mg PO DAILY@2100 11/03/18 [History] Cyclobenzaprine [Flexeril] 5 mg PO TID PRN 10 Days #15 tablet 11/04/18 [Rx] Cyclobenzaprine [Flexeril] 10 mg PO HS 10 Days #10 tablet 11/04/18 [Rx] Oxycodone HCl/Acetaminophen [Percocet 10-325 mg Tablet] 1 each PO Q6H PRN 7 Days #21 tablet 11/04/18 [Rx] Allergies/Adverse Reactions: Allergy/AdvReac Type Severity Reaction Status Date / Time No Known Allergies Allergy Verified 07/03/18 11:41 Date of admission: 11/03/18 17:31 Primary care physician: Lee Cuadra MD Discharging clinician: Kevin Hardy Anticipated date of discharge: 11/04/18 - Constitutional Vitals: Temp Pulse Resp BP Pulse Ox 97.6 F 95 16 131/73 97 11/04/18 11:21 11/04/18 11:21 11/04/18 11:21 11/04/18 11:21 11/04/18 11:21 General appearance: Present: A&O X 3, answers questions appropriately Exam: xx - Patient Status Disposition: Home, Self-Care Condition: Fair Functional capacity at discharge: independent ambulation (can use a walker, if needed...) Overall status at discharge: patient is progressing back to baseline - Discharge Instructions Instructions: Oxycodone/Acetaminophen (By mouth), Cyclobenzaprine (By mouth), Lumbar Spinal Stenosis (DC), Degenerative Disc Disease (DC) Follow Up With: Lee Cuadra MD [Primary Care Provider] - Additional Instructions: FOLLOW-UP WITH PCP -- IN 1-2 WEEKS... THE PATIENT REFUSED OUTPATIENT PHYSICAL THERAPY (INCLUDING HOME PT)... - Diet and Activity Activity: increase activity as tolerated Diet: advance to your usual diet
[2018-11-04] MEDS ORDERED: cloNIDine HCl 0.1 MG TABLET PO SCH (21:00)
== END 2018-11-04 14:44 | disposition home or self-care (01) ==
LOC: 3BNU 10:56 → EMEROOARM 10:56 → SUATTDRO 17:31 → 3BNU 18:26
PROVIDERS: ADMIT Internal Medicine; ATTEND Internal Medicine

== ENCOUNTER 2019-09-12 13:49 | Inpatient (IN) ==
[2019-09-12] MEDS ORDERED: *HR* OxyCODONE Immed Rel 5 MG TABLET PO ONE (14:00)
[2019-09-12 17:10] LABS: Basophils # 0.1 K/mcL (0.0-0.2); Basophils % 0.5 %; Eosinophils # 0.2 K/mcL (0.0-0.6); Eosinophils % 1.8 %; Hemoglobin 12.4 g/dL (11.5-15.4); Immature Granulocytes % 0.5 % (0-4); Lymphocytes # 1.6 K/mcL (0.6-4.6); Lymphocytes % 17.8 %; Mean Corpuscular HGB Conc 32.6 g/dL (31.6-35.5); Mean Corpuscular Hemoglobin 30.2 pg (28.0-33.3); Mean Corpuscular Volume 92.5 fL (83.0-100.0); Mean Platelet Volume 10.3 fL (9.4-12.4); Monocytes # 0.5 K/mcL (0.0-1.3); Monocytes % 5.9 %; Neutrophils # 6.8 K/mcL (1.6-8.9); Platelet Count 217 K/mcL (140-400); Red Blood Count 4.11 M/mcL (3.82-4.97); Red Cell Distribution Width 13.5 % (11.5-14.5); Segmented Neutrophils % 73.5 %; White Blood Count 9.2 K/mcL (4.3-11.1)
[2019-09-12] MEDS ORDERED: *HR* HYDROmorphone (PF) 1 MG/ML SYRINGE IVP ONE (18:13)
[2019-09-12] MEDS ORDERED: Acetaminophen 325 MG TABLET PO PRN (18:35)
[2019-09-12] MEDS ORDERED: Naloxone 0.4 MG/ML INJ IVP PRN (18:35)
[2019-09-12] MEDS ORDERED: MOM Conc 10 ML UD.LIQ PO PRN (18:35)
[2019-09-12] MEDS: Ondansetron 4 MG/2 ML VIAL IVP PRN (19:24)
[2019-09-12] MEDS: amLODIPine 5 MG TABLET PO SCH (21:23)
[2019-09-12] MEDS: *HR* OxyCODONE Immed Rel 5 MG TABLET PO PRN (22:23)
[2019-09-13 05:23] LABS: Basophils # 0.1 K/mcL (0.0-0.2); Basophils % 0.7 %; Eosinophils # 0.2 K/mcL (0.0-0.6); Eosinophils % 2.4 %; Hematocrit 35.2 % (35.3-44.9); Hemoglobin 11.6 g/dL (11.5-15.4); Immature Granulocytes % 0.3 % (0-4); Lymphocytes # 1.8 K/mcL (0.6-4.6); Lymphocytes % 25.5 %; Mean Corpuscular Hemoglobin 29.4 pg (28.0-33.3); Mean Corpuscular Volume 89.1 fL (83.0-100.0); Mean Platelet Volume 10.2 fL (9.4-12.4); Monocytes # 0.6 K/mcL (0.0-1.3); Monocytes % 7.8 %; Neutrophils # 4.4 K/mcL (1.6-8.9); Platelet Count 224 K/mcL (140-400); Red Blood Count 3.95 M/mcL (3.82-4.97); Red Cell Distribution Width 13.9 % (11.5-14.5); Segmented Neutrophils % 63.3 %
[2019-09-13 05:42] LABS: Calcium 8.8 mg/dL (8.6-10.3); Potassium 4.5 mEq/L (3.5-5.1)
[2019-09-13] MEDS: amLODIPine 5 MG TABLET PO SCH (07:52)
[2019-09-13] MEDS: Aspirin Enteric Coated 81 MG Tablet PO SCH (07:52)
[2019-09-13] MEDS: *HR* OxyCODONE Immed Rel 5 MG TABLET PO PRN ×2 (10:24→13:49)
[2019-09-13] MEDS ORDERED: diazePAM 5 MG TABLET PO ONE (13:37)
[2019-09-13] MEDS: Ondansetron 4 MG/2 ML VIAL IVP PRN (17:28)
[2019-09-13] MEDS ORDERED: amLODIPine 5 MG TABLET PO STA (19:49)
[2019-09-13] MEDS ORDERED: Aspirin 81 MG TAB.CHEW PO STA (19:50)
[2019-09-14 01:32] LABS: Basophils # 0.1 K/mcL (0.0-0.2); Basophils % 0.7 %; Eosinophils # 0.1 K/mcL (0.0-0.6); Eosinophils % 1.6 %; Hematocrit 34.1 % (35.3-44.9); Hemoglobin 11.1 g/dL (11.5-15.4); Immature Granulocytes % 0.3 % (0-4); Lymphocytes # 1.7 K/mcL (0.6-4.6); Lymphocytes % 23.7 %; Mean Corpuscular HGB Conc 32.6 g/dL (31.6-35.5); Mean Corpuscular Hemoglobin 29.1 pg (28.0-33.3); Mean Corpuscular Volume 89.5 fL (83.0-100.0); Monocytes # 0.5 K/mcL (0.0-1.3); Neutrophils # 4.7 K/mcL (1.6-8.9); Platelet Count 210 K/mcL (140-400); Red Blood Count 3.81 M/mcL (3.82-4.97); Segmented Neutrophils % 66.7 %; White Blood Count 7.1 K/mcL (4.3-11.1)
[2019-09-14 01:52] LABS: BUN/Creatinine Ratio 18 (6-26); Blood Urea Nitrogen 19 mg/dL (8-23); Calcium 8.9 mg/dL (8.6-10.3); Carbon Dioxide 24 mEq/L (23-29); Chloride 105 mEq/L (98-107); Glucose 149 mg/dL (70-105); Osmolality,Calculated 291 (280-300); Potassium 4.3 mEq/L (3.5-5.1); Sodium 138 mEq/L (136-145); eGFR For African Americans > 60 (> 60); eGFR For Non-African Americans 50 (> 60)
[2019-09-14] MEDS: Aspirin Enteric Coated 81 MG Tablet PO SCH (07:41)
[2019-09-14] MEDS: amLODIPine 5 MG TABLET PO SCH (07:41)
[2019-09-14 13:05] LABS: Phosphorous 3.8 mg/dL (2.7-4.5)
[2019-09-14] MEDS: *HR* Rivaroxaban 10 MG TABLET PO SCH (13:22)
[2019-09-15] MEDS: *HR* OxyCODONE Immed Rel 5 MG TABLET PO PRN ×3 (08:46→22:09)
[2019-09-15] MEDS: *HR* Rivaroxaban 10 MG TABLET PO SCH (08:46)
[2019-09-15] MEDS: Valsartan 160 MG TABLET PO SCH (08:46)
[2019-09-15] MEDS: amLODIPine 5 MG TABLET PO SCH (08:47)
[2019-09-15] MEDS: Bumetanide 1 MG TABLET PO SCH (08:47)
[2019-09-15] MEDS: Aspirin Enteric Coated 81 MG Tablet PO SCH (08:47)
[2019-09-16] MEDS: *HR* OxyCODONE Immed Rel 5 MG TABLET PO PRN ×3 (02:50→11:06)
[2019-09-16] MEDS: Bumetanide 1 MG TABLET PO SCH (07:09)
[2019-09-16] MEDS: Aspirin Enteric Coated 81 MG Tablet PO SCH (07:10)
[2019-09-16] MEDS: *HR* Rivaroxaban 10 MG TABLET PO SCH (07:10)
[2019-09-16] MEDS: amLODIPine 5 MG TABLET PO SCH (07:10)
[2019-09-16] MEDS: Valsartan 160 MG TABLET PO SCH (07:10)
[2019-09-16] MEDS ORDERED: Sennosides/Docusate Sodium TABLET PO ONE (10:24)
[2019-09-16 11:44] VITALS: BP 141/78
== END 2019-09-16 12:15 | DRG 536 ==
LOC: EMEROOARM 13:49 → SUATTDRO 19:09 → 3NENU 19:09
PROVIDERS: ADMIT Internal Medicine; ATTEND Internal Medicine